=== PATIENT | male | born 1970 | race African-American/Black ===

== ENCOUNTER 2023-04-16 09:39 | Outpatient (AMB) | payer OTHER, SELFPAY ==
--- NOTE | 2023-04-16 09:46 | A.OFFVIS_ITS ---
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: Yes Auto Body Service Mechanic Name: Abhinav RolandJOSEparaprofessional interpreter Allergies cefaclor [From Ceclor] Adverse Reaction (Severe, Verified 04/16/23 09:50) Rash ciprofloxacin [From Cipro] Adverse Reaction (Severe, Verified 04/16/23 09:50) Rash Medication List - Last Reconciled 04/16/23 by Merly Bejarano LPN amlodipine 10 mg PO DAILY atorvastatin 40 mg PO DAILY lisinopril 10 mg PO DAILY naproxen 500 mg PO BID sumatriptan succinate mg PO tamsulosin 0.4 mg PO DAILY tolterodine ER 4 mg PO DAILY triamcinolone acetonide 0.1% 1 appl topical BID-TID triamterene-hydrochlorothiazid 37.5-25 mg 1 tab PO DAILY trospium ER 60 mg PO DAILY HPI Disorder of sacrum/no voicemail 2 HPI0 Details 52-year-old male who presents today to t he office for an evaluation of disorder of sacrum and low back pain. He has had a long history of lower back and neck pain that extensively started after some lifting work and injuries involving his pets. He reports chronic low back pain for 4-5 years. Pain today is mostly rated in the lower back, radiating down the right lower extremity. It is rated at 6/10 in the lower back and up to 10/10 in the right leg. He continues to work full-time. The pain is variable and gets worse with weather changes and movements. It?s been interfering with his daily activities as well as his sleep. His leg pain bothersome. He reports pain in his right leg when walking. His right leg is much worse than left side. He reports severe hip pain that radiates He has had sciatic-related symptoms with the radiating pain and pins and needles in his right lower extremity that have gotten better with the physical therapy in the past. He has also seen Dr. Lakhani for sacroiliac joint-related pain. The SI joint belt did not help. He also underwent a cortisone injection into the SI joint, which was moderately helpful for a few days. He has used cyclobenzaprine for muscle relaxation over the years, which helps with his sleeping. He has been on and off trying chiropractic therapy. Most of this was done in 2019. The patient had a neck injury in 2008 and has been having on-and-off subsequent issues since 2019. He has been having episodes of numbness in his arms. He has also had a long-standing issue with Raynaud's phenomenon in his hands. He also underwent a workout for possible carpal tunnel syndrome, which was ruled out. There is also a question of thoracic outlet syndrome that might be causing numbness and a cold sensation in his hands. He reports waking 15-20 times at night for voiding and has been following up with urologist. [facility] Medical History (Updated 04/16/23 @ 12:30 by Abhi Barahona MD) Hyperlipidemia Hypertension Raynaud's disease Disorder of endocrine system Hearing loss OAB (overactive bladder) Chronic low back pain Paresthesia of upper limb Review of Systems Const All systems reviewed & are unremarkable except as noted in HPI and below Physical Exam Vital Signs: Last Vital Signs Pulse 83 04/16/23 09:48 Resp 12 04/16/23 09:48 BP 126/83 04/16/23 09:48 Pulse Ox 98 04/16/23 09:48 Oxygen Delivery Method Room Air 04/16/23 09:48 General: Appears afebrile. Alert and oriented. Mood and affect appropriate. Follows and participates in conversation appropriately. Respiratory effort is unlabored. Able to transition from sit to stand unassisted. Ambulates with bilaterally normal heel strike and toe off. Straight leg raise is positive on the right side. Bending backward slightly reproduces pain in the right lower back and hip region. Forward flexion reproduces pain in the lower back region. Results Reviewed Results Reviewed: 10/07/22: MR LUMBAR SPINE WO CONTRAST 05/20/22: MR CERVICAL SPINE WO CONTRAST. MRI images reviewed showing vertebrogenic endplate Modic changes at inferior L5 and superior S1 with significant degeneration of the L5 and S1 disc. There is also significant hypertrophy of the facets at L4-5 and L5-S1, along with marrow changes. There is significance foraminal stenosis at L5-S1 bilaterally; both left and right side. There is also ligamentum flavum hypertrophy at L3-4 and L4-5. There is a disc bulge at L4 that in combination with the ligament hypertrophy, causes moderate spinal stenosis. Assessment & Plan Assessment & Plan (1) Vertebrogenic low back pain: Code(s): M54.51 - Vertebrogenic low back pain (2) Lumbar spondylosis: Code(s): M47.816 - Spondylosis without myelopathy or radiculopathy, lumbar region (3) Spinal stenosis, lumbar region with neurogenic claudication: Code(s): M48.062 - Spinal stenosis, lumbar region with neurogenic claudication (4) Intractable low back pain: Code(s): M54.59 - Other low back pain (5) Sacroiliac joint dysfunction: Code(s): M53.3 - Sacrococcygeal disorders, not elsewhere classified Plan Discussed right L5-S1 transforaminal epidural steroid injections, potentially followed by temporary nerve stimulator and basivertebral nerve ablation procedure at L5-S1 for his back and leg pain. Will schedule him for a right L5-S1 TFESI. Discussed the risks and benefits of the procedure with the patient in detail. All questions were answered. The patient is on board with the plan. Brochures for [employer] [facility] and [employer] provided to the patient today. A prescription of gabapentin 300 mg was provided today in the office for temporary pain control. I recommended a gradual increment in the dose of gabapentin to avoid possible side effects. Justification for interventional therapy: ? Patient with average pain > 6/10 ? Patient has exhausted conservative therapy including physical therapy, NSAIDs, muscle relaxants, sacroiliac compression belt, chiropractor therapy, TNS, hot cold application ? Patient unable to tolerate physical therapy due to pain 60 minutes were spent in reviewing medical records, imaging, counseling and physical exam. Scribed for Dr. Barahona by Librado King, medical services assistant, on 04/16/2023. I, Dr. Barahona, have personally reviewed and agree with the information entered by the scribe. Medications: New 2 gabapentin 300 mg PO TID 90 caps 0RF Coding Level of Care Code New Pt Level 5 (14879) Diagnoses Vertebrogenic low back pain M54.51 Lumbar spondylosis M47.816 Spinal stenosis, lumbar region with neurogenic claudication M48.062 Intractable low back pain M54.59 Sacroiliac joint dysfunction M53.3
[2023-04-16 09:48] VITALS: BP 126/83; PULSE 83; RESP 12; O2SAT 98
== END 2023-04-16 10:49 | disposition home or self-care (01) ==
PROVIDERS: PCP Family Medicine; Visit Provider Internal Medicine
DX: M54.51 Vertebrogenic low back pain (principal); M47.816 Spondylosis without myelopathy or radiculopathy, lumbar region; M48.062 Spinal stenosis, lumbar region with neurogenic claudication; M54.59 Other low back pain; M53.3 Sacrococcygeal disorders, not elsewhere classified
CPT/HCPCS: 99205

== ENCOUNTER → 2023-04-16 09:39 | Outpatient (BNVA) | payer OTHER, SELFPAY | PROVIDERS: PCP Family Medicine; Visit Provider Internal Medicine ==

== ENCOUNTER 2023-08-16 06:16 | Outpatient (REF) | payer OTHER, SELFPAY ==
--- NOTE | ~2023-08-16 | FL_ITS ---
EXAMINATION: XR FLUOROSCOPY WITH IMAGES CLINICAL INFORMATION: Lumbar spinal stenosis. COMPARISON: None available. TECHNIQUE: Fluoroscopy Supervised By: Dr. Barahona. Fluoroscopy Time: 0.3 min. Cumulative Dose: 7.17 mGy. DAP: 0.0480 Gycm2. Images: 2. FINDINGS: Intraoperative fluoroscopy and spot films were performed during a procedure in the OR. A needle is seen overlying the lumbar spine on the right. Contrast media is injected demonstrating epidural contrast. Exact level cannot be ascertained secondary to marked coning of the images. Please see Dr. Barahona' report for complete details. FL/FL guidance in treatment room IMPRESSION: Intraoperative fluoroscopy and spot films were obtained. Please see Dr. Barahona' report for complete details.
== END 2023-08-16 06:17 | disposition home or self-care (01) ==
LOC: CF 06:16
PROVIDERS: Visit Provider Internal Medicine
DX: M48.062 Spinal stenosis, lumbar region with neurogenic claudication (principal); M54.16 Radiculopathy, lumbar region
CPT/HCPCS: 64483; J1100; Q9967

== ENCOUNTER 2023-08-16 13:12 | Outpatient (AMB) | payer OTHER, SELFPAY ==
[2023-08-16 14:55] VITALS: BP 120/78; PULSE 76; RESP 18; O2SAT 97
--- NOTE | 2023-08-16 14:55 | A.OFFVIS_ITS ---
Vital Signs 08/16/23 14:55 08/16/23 14:56 Height 5 ft 8 in BP 120/78 120/74 Blood Pressure Location Lt brachial Lt brachial Position Sitting Sitting Respiration 18 18 Pulse 76 88 Pulse Source Pulse Oximeter Pulse Oximeter Pulse Oximetry (%) 97 96 Oxygen Delivery Method Room Air Room Air Comment Pre-Op Post-Op Intake Visit Reasons: Right L5-S1 TFESI Allergies cefaclor [From Ceclor] Adverse Reaction (Severe, Verified 04/16/23 09:50) Rash ciprofloxacin [From Cipro] Adverse Reaction (Severe, Verified 04/16/23 09:50) Rash HPI HPI Right L5-S1 TFESI: Details: Patient presents for scheduled procedure. Denies any recent cough, cold, infection, fever or other significant changes in medical history since last office visit. [facility] Medical History (Updated 08/16/23 @ 14:58 by Abhi Barahona MD) Hyperlipidemia Hypertension Raynaud's disease Disorder of endocrine system Hearing loss OAB (overactive bladder) Chronic low back pain Paresthesia of upper limb Physical Exam Vital Signs: Last Vital Signs Pulse 88 08/16/23 14:56 Resp 18 08/16/23 14:56 BP 120/74 08/16/23 14:56 Pulse Ox 96 08/16/23 14:56 Oxygen Delivery Method Room Air 08/16/23 14:56 Office Procedures Details: Transforaminal epidural steroid injection, Right L5/S1 After obtaining written consent, pre-procedure blood pressure and heart rate were stable and recorded in the nursing record. The patient was placed in the prone position on the fluoroscopy table. The l umbosacral area was prepped with chloraprep, allowed to dry and draped in sterile fashion. Using fluoroscopy, the skin overlying our target was anesthetized with 0.5% lidocaine. A 22 gauge 3.5 inch spinal needle was advanced to the safe triangle in the upper pole of the right L5 foramen. No paresthesias were elicited with needle placement and aspiration was negative for blood and CSF. Correct needle position was confirmed with approximately 1 ml contrast dye (Omnipaque 180 mg/ml) injected under real-time fluoroscopy. No evidence of vascular or intrathecal uptake was seen and there was both epidural and peripheral spread of the contrast agent. 10 mg dexamethasone plus 1 ml containing 0.5% lidocaine was slowly injected. The needle was flushed and removed. The skin was cleansed and a sterile bandages were applied. The patient tolerated the procedure well and no complications were encountered. Following the procedure the patient's vital signs were stable. The patient was discharged home in good condition with post-procedural instructions. Time Out: Immediately prior to the procedure, the following was verbally confirmed that there is a signed consent form and that the correct patient, planned procedure, site and side are consistent with documentation and that necessary equipment and/or blood products are available prior to the start of the case. Complications: none EBL: <5 cc 71369 - Lumbar/Sacral Procedure code (CPT) selection complete Assessment & Plan Assessment & Plan (1) Lumbar radiculitis: Code(s): M54.16 - Radiculopathy, lumbar region Category: Medical Plan Patient is status post right L5/S1 TFESI. Patient tolerated procedure well and was discharged home in stable condition with discharge instructions. All questions were answered. We will follow-up via telephone or in clinic to assess response to therapy. A follow-up appointment was made during today's visit. Orders: Orders FL guidance in treatment room Today M48.062 - Spinal stenosis, lumbar region with neurogenic claudication Coding Level of Care Code Procedure Only Diagnoses Lumbar radiculitis M54.16 CPT Codes Transforaminal Epidural Steroid Inj - TESI 3: 00677 - Lumbar/Sacral ([id number])
[2023-08-16 14:56] VITALS: BP 120/74; PULSE 88; RESP 18; O2SAT 96
== END 2023-08-16 14:45 | disposition home or self-care (01) ==
LOC: HO.PMCPRC 13:12
PROVIDERS: PCP Family Medicine; Visit Provider Internal Medicine
DX: M54.16 Radiculopathy, lumbar region (principal)
CPT/HCPCS: 64483

== ENCOUNTER 2023-09-14 10:19 | Outpatient (AMB) | payer OTHER, SELFPAY ==
--- NOTE | 2023-09-14 10:30 | MHC.OFFVIS ---
Vital Signs 09/14/23 10:32 Height 5 ft 8 in Weight 212 lb BMI 32.2 BP 131/80 Blood Pressure Location Lt brachial Position Sitting Respiration 14 Pulse 86 Pulse Source Pulse Oximeter Pulse Oximetry (%) 98 Oxygen Delivery Method Room Air Intake Visit Reasons: s/p R L5-S1 TFESI Marketing Intelligence Manager Required: Yes Marketing Intelligence Manager Name: [id number] Lamar Allergies cefaclor [From Ceclor] Adverse Reaction (Severe, Verified 09/14/23 10:31) Rash ciprofloxacin [From Cipro] Adverse Reaction (Severe, Verified 09/14/23 10:31) Rash Medication List - Last Reconciled 09/14/23 by Merly Bejarano LPN amlodipine 10 mg PO DAILY atorvastatin 40 mg PO DAILY gabapentin 300 mg PO TID lisinopril 10 mg PO DAILY naproxen 500 mg PO BID sumatriptan succinate mg PO tamsulosin 0.4 mg PO DAILY tolterodine ER 4 mg PO DAILY triamcinolone acetonide 0.1% 1 appl topical BID-TID triamterene-hydrochlorothiazid 37.5-25 mg 1 tab PO DAILY trospium ER 60 mg PO DAILY HPI HPI s/p R L5-S1 TFESI: Details: 52-year-old male who presents today to the office for a status post right L5-S1 TFESI. The patient reports no relief following the procedure. He reports that his last injection worsened his pain. He reports back, hip, and radiating leg pain. He reports constant pain with a burning sensation, which is bothersome. He has started gabapentin with no relief. He has tried increasing the dose of gabapentin without any relief. He has been taking Tylenol 1000 mg t.i.d. He had his last MRI of the back at [facility]. Past procedures 08/16/23: Transforaminal epidural steroid injection, Right L5/S1: no relief. [facility] Medical History (Updated 08/16/23 @ 14:58 by Abhi Barahona MD) Hyperlipidemia Hypertension Raynaud's disease Disorder of endocrine system Hearing loss OAB (overactive bladder) Chronic low back pain Paresthesia of upper limb Review of Systems Const All systems reviewed & are unremarkable except as noted in HPI and below Physical Exam Vital Signs: Last Vital Signs Pulse 86 09/14/23 10:32 Resp 14 09/14/23 10:32 BP 131/80 07/05/24 10:32 Pulse Ox 98 09/14/23 10:32 Oxygen Delivery Method Room Air 09/14/23 10:32 BMI result Body Mass Index 32.2 General: Appears afebrile. Alert and oriented. Mood and affect appropriate. Follows and participates in conversation appropriately. Respiratory effort is unlabored. Able to transition from sit to stand unassisted. Ambulates with bilaterally normal heel strike and toe off. Significant discomfort in the sitting position, especially on the right leg. Standing up is more comfortable. Subjective weakness in the right leg. Results Reviewed Results Reviewed: No imaging is available for review. Assessment & Plan Assessment & Plan (1) Lumbar radiculitis: Code(s): M54.16 - Radiculopathy, lumbar region Category: Medical (2) Vertebrogenic low back pain: Code(s): M54.51 - Vertebrogenic low back pain Category: Medical (3) Lumbar spondylosis: Code(s): M47.816 - Spondylosis without myelopathy or radiculopathy, lumbar region Category: Medical Plan I had an extensive discussion with him regarding his potential pain generators once again, including foraminal stenosis at L5-S1 on the right side, facet arthritis and edema at L4-5, and vertebral endplate degeneration most pronounced at L5-S1. For his radicular pain down the right leg, the primary cause appears to be right L5 nerve root impingement, and unfortunately, he did not get a response from his last transforaminal epidural steroid injection. I proposed an L5-S1 interlaminar KURT to see if we could control his symptoms, which continue to be debilitating. If epidural steroid injection is once again not helpful in relieving them, then we will consider a surgical evaluation for a potential right L5 foraminotomy. With respect to his facet and vertebral endplate issues a source of axial low back pain, we will consider PNS and BVN ablation in the future, respectively, if these pains become primary concerns. Patient is in agreement with the plan. Scribed for Dr. Barahona by Librado King, medical collector, on 09/14/2023. I, Dr. Barahona, have personally reviewed and agree with the information entered by the scribe. Medications: New tramadol 50 mg PO BID PRN 60 tabs 0RF pain Coding Level of Care Code Est Pt Level 4 (08446) Diagnoses Lumbar radiculitis M54.16 Vertebrogenic low back pain M54.51 Lumbar spondylosis M47.816
[2023-09-14 10:32] VITALS: BP 131/80; PULSE 86; RESP 14; O2SAT 98; BMI 32.2
== END 2023-09-14 11:23 | disposition home or self-care (01) ==
PROVIDERS: PCP Family Medicine; Visit Provider Internal Medicine
DX: M54.16 Radiculopathy, lumbar region (principal); M54.51 Vertebrogenic low back pain; M47.816 Spondylosis without myelopathy or radiculopathy, lumbar region
CPT/HCPCS: 99214

== ENCOUNTER → 2023-09-14 10:19 | Outpatient (BNVA) | payer OTHER, SELFPAY | PROVIDERS: PCP Family Medicine; Visit Provider Internal Medicine ==

== ENCOUNTER 2024-02-18 10:39 | Outpatient (AMB) | payer OTHER, SELFPAY ==
--- NOTE | 2024-02-18 10:39 | A.OFFVIS_ITS ---
Intake Visit Reasons: Follow Up Allergies cefaclor [From Ceclor] Adverse Reaction (Severe, Verified 09/14/23 10:31) Rash ciprofloxacin [From Cipro] Adverse Reaction (Severe, Verified 09/14/23 10:31) Rash [facility] Medical History (Updated 08/16/23 @ 14:58 by Abhi Barahona MD) Hyperlipidemia Hypertension Raynaud's disease Disorder of endocrine system Hearing loss OAB (overactive bladder) Chronic low back pain Paresthesia of upper limb Telehealth Telehealth Telehealth Platform: [employer] Location of provider rendering services: practice address Location of patient: address on file Patient Identification confirmed using: Name, : Yes Telehealth method: video Patient verbally consented to treatment: Yes Patient verbally consented to billing insurance company: Yes Patient informed of any privacy concerns related to visit: Yes Coding
--- NOTE | 2024-02-18 10:40 | MHC.OFFVIS ---
Intake Visit Reasons: Follow Up Allergies cefaclor [From Ceclor] Adverse Reaction (Severe, Verified 09/14/23 10:31) Rash ciprofloxacin [From Cipro] Adverse Reaction (Severe, Verified 09/14/23 10:31) Rash HPI HPI Follow Up: Details: 53-year-old male who presents today via tele-visit for follow up. A certified special delivery carrier was present during the visit. He had no significantly following the last injection. He continues to have significant lower back and leg pain, mostly in the thighs. The pain interferes with his daily activities. His sleep is interrupted and he often requires help with standing and walking. He has also significant sexual limitations and is unable to cook for himself. Pain is rated 6-8/10 in intensity on average. He has been having more days with 8+/10 pain in the recent weeks. He is interested in alternative options. He has been doing physical therapy and home exercises including stretching and strengthening. Past procedures 08/16/23: Transforaminal epidural steroid injection, Right L5/S1: no relief. [facility] Medical History (Updated 08/16/23 @ 14:58 by Abhi Barahona MD) Hyperlipidemia Hypertension Raynaud's disease Disorder of endocrine system Hearing loss OAB (overactive bladder) Chronic low back pain Paresthesia of upper limb Review of Systems Const All systems reviewed & are unremarkable except as noted in HPI and below Telehealth Telehealth Telehealth [facility] Location of provider rendering services: practice address Location of patient: address on file Patient Identification confirmed using: Name, : Yes Telehealth method: video Patient verbally consented to treatment: Yes Patient verbally consented to billing insurance company: Yes Patient informed of any privacy concerns related to visit: Yes Minutes spent on Phone/Video with Pt.: 14 Results Reviewed Results Reviewed: No imaging is available for review. Assessment & Plan Assessment & Plan (1) Lumbar radiculitis: Code(s): M54.16 - Radiculopathy, lumbar region Category: Medical Plan He continues to be having radicular symptoms that are more than 6/10 intensity on average and interfering with her activities of daily living. He has not been able to keep up with exercising or home stretching and strengthening routine because of limitations due to pain and as a result has gained 20 lbs. Since the last injection, once again I informed him that we will try an interlaminar epidural injection as the next step but if that is not helpful, then we have to consider more interventional options in the future for helping these symptoms. The patient expressed an understanding and is onboard with the plan. We will schedule him for a right L5-S1 interlaminar KURT. Discussed the risks and benefits of the procedure with the patient in detail. All questions were answered. The patient is on board with the plan. Justification for interventional therapy: ? Patient with average pain > 6/10 ? Patient has exhausted conservative therapy. ? Patient continuing HEP, unable to tolerate physical therapy due to pain. . Patient has a good understanding of their pain condition and has appropriate mental and social support. Scribed for Dr. Barahona by Librado King, medical program specialist, on 02/18/2024. I, Dr. Barahona, have personally reviewed and agree with the information entered by the scribe. Coding Level of Care Code Tele Est Pt Level 3 (29074) Diagnoses Lumbar radiculitis M54.16
== END 2024-02-18 10:40 | disposition home or self-care (01) ==
LOC: HO.PMC 10:39
PROVIDERS: PCP Family Medicine; Visit Provider Internal Medicine
DX: M54.16 Radiculopathy, lumbar region (principal)
CPT/HCPCS: 99213

== ENCOUNTER 2024-03-13 07:26 | Outpatient (REF) | payer OTHER, SELFPAY ==
--- NOTE | ~2024-03-13 | FL_ITS ---
EXAMINATION: FLUOROSCOPY GUIDANCE FOR NEEDLE PLACEMENT CLINICAL INFORMATION: M54.16 - Radiculopathy, lumbar region COMPARISON: None available. TECHNIQUE: 2 digital images obtained in OR. No radiologist was present during the procedure FINDINGS/ FL/FL guidance in treatment room IMPRESSION: There are 2 images obtained in OR revealing needle positioned in posterior epidural space with contrast opacifying the epidural space at L5-S1 disc level with contrast opacification FLUOROSCOPY TIME: 0.3 minutes DOSE AREA PRODUCT: 0.0567 uGy-m2 (microgray-meter squared) Electronically signed by: Martinez Berry MD 03/24/2024 08:35 AM [facility]
== END 2024-03-13 07:27 | disposition home or self-care (01) ==
LOC: CF 07:26
PROVIDERS: Visit Provider Internal Medicine
DX: M54.16 Radiculopathy, lumbar region (principal)
CPT/HCPCS: 62323; J2003; J3301; Q9967

== ENCOUNTER 2024-03-13 09:05 | Outpatient (AMB) | payer OTHER, SELFPAY ==
[2024-03-13 09:12] VITALS: BP 145/87; PULSE 108; O2SAT 97
--- NOTE | 2024-03-13 09:12 | MHC.OFFVIS ---
Vital Signs 03/13/24 09:12 03/13/24 10:10 BP 145/87 H 146/93 H Blood Pressure Location Lt brachial Lt brachial Position Sitting Sitting Pulse 108 H 104 H Pulse Source Pulse Oximeter Pulse Oximeter Pulse Oximetry (%) 97 98 Oxygen Delivery Method Room Air Room Air Intake Visit Reasons: Right L5-S1 interlaminar KURT Allergies cefaclor [From Ceclor] Adverse Reaction (Severe, Verified 09/14/23 10:31) Rash ciprofloxacin [From Cipro] Adverse Reaction (Severe, Verified 09/14/23 10:31) Rash HPI HPI Right L5-S1 interlaminar KURT: Details: Patient presents for scheduled procedure. Denies any recent cough, cold, infection, fever or other significant changes in medical history since last office visit. [facility] Medical History (Updated 08/16/23 @ 14:58 by Abhi Barahona MD) Hyperlipidemia Hypertension Raynaud's disease Disorder of endocrine system Hearing loss OAB (overactive bladder) Chronic low back pain Paresthesia of upper limb Physical Exam Vital Signs: Last Vital Signs Pulse 108 H 03/13/24 09:12 BP 145/87 H 03/13/24 09:12 Pulse Ox 97 03/13/24 09:12 Oxygen Delivery Method Room Air 03/13/24 09:12 Office Procedures AMB Joint Injection/Aspiration Joint Injection/Aspiration Details: Interlaminar epidural steroid injection, L5/S1, Right parasaggital After obtaining written consent, pre-procedure blood pressure and heart rate were stable and recorded in the nursing record. The patient was placed in the prone position. The lumbosacral area was widely prepped with chloraprep and draped in sterile fashion. Fluoroscopic guidance was used to identify the desired interlaminar space and for needle placement. Subcutaneous 0.5% lidocaine was used to anesthetize the skin overlying the target. A 20-gauge Shafer needle was advanced to the epidural space using loss of resistance to contrast technique under fluoroscopic AP and contralateral oblique views. There was no evidence of heme or CSF and no paresthesias were elicited with needle placement. Confirmation of epidural needle placement was performed with 1cc of omnipaque 180. Next 3 ml 0.5% lidocaine mixed with 80 mg triamcinilone was administered epidurally with no pain elicited on injection. The needle tract tubing was then cleared with 1 ml of 0.5% lidocaine. The needle was removed, skin cleansed and a sterile bandage was applied. The patient tolerated the procedure well and no complications were encountered. Following the procedure the patient's vital signs were stable. The patient was discharged home in good condition with post-procedural instructions. Time Out: Immediately prior to the procedure, the following was verbally confirmed that there is a signed consent form and that the correct patient, planned procedure, site and side are consistent with documentation and that necessary equipment and/or blood products are available prior to the start of the case. Complications: none EBL: <2 cc Coding 17872 - Caudal/Lumbar Epidural/Interlaminar with fluoroscopy Procedure code (CPT) selection complete Assessment & Plan Assessment & Plan (1) Lumbar radiculitis: Code(s): M54.16 - Radiculopathy, lumbar region Category: Medical Plan Patient is status post right L5-S1 interlaminar KURT. Patient tolerated procedure well and was discharged home in stable condition with discharge instructions. All questions were answered. We will follow-up via telephone or in clinic to assess response to therapy. A follow-up appointment was made during today's visit. Orders: Orders FL guidance in treatment room Today M54.16 - Radiculopathy, lumbar region Coding Level of Care Code Procedure Only Diagnoses Lumbar radiculitis M54.16 CPT Codes Coding - Joint 11: 70913 - Caudal/Lumbar Epidural/Interlaminar with fluoroscopy ([id number])
[2024-03-13 10:10] VITALS: BP 146/93; PULSE 104; O2SAT 98
== END 2024-03-13 10:11 | disposition home or self-care (01) ==
LOC: HO.PMCPRC 09:05
PROVIDERS: PCP Family Medicine; Visit Provider Internal Medicine
DX: M54.16 Radiculopathy, lumbar region (principal)
CPT/HCPCS: 62323

== ENCOUNTER 2024-08-01 12:39 | Outpatient (AMB) | payer OTHER, SELFPAY ==
--- OUTSIDE RECORDS SUMMARY | 2024-08-01 12:41 | XMS_ITS | Clinical Summary ---
Author Organization [facility] Address [address] [place] [address] Care Team Providers Care Warehouse Man Name Role Phone Maximiliano Ocampo MD Primary Care Provider Allergies Active Allergy Reactions Criticality Noted Date Comments Cefaclor 09/20/2009 [facility] Comment: Category: Adverse Reaction; Ciprofloxacin 09/20/2009 [facility] Comment: Category: Adverse Reaction; Medications Testosterone Cypionate (DEPO-TESTOTERO NE) 200 MG/ML injection inject 100mg/ml [id number] 1 5 09/20/2009 Active Simvastatin (ZOCOR) 40 MG tablet TAKE 1 TABLET DAILY IN THE EVENING. 90 3 11/04/2012 Active Aspirin (TGT Aspirin Low Dose) 81 MG tablet TAKE 1 TABLET DAILY. 100 0 12/06/2012 Active METRONIDAZOLE, TOPICAL, (METROCREAM) 0.75 % cream APPLY AND GENTLY MASSAGE INTO AFFECTED AREA(S) TWICE DAILY. 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 Tinea cruris 11/04/2012 Tendonitis 04/18/2012 Overview (04/15/2023): Onset: 04/18/2012; Description: R elbow extensor Carpal tunnel syndrome Bilateral 04/18/2012 Overview (04/15/2023): Laterality: Bilateral Papules 04/18/2012 Arm pain Right 10/25/2010 Overview (04/15/2023): Laterality: Right Hyperlipidemia 09/27/2010 Sensorineural hearing loss 09/28/2009 Migraine headache 09/20/2009 Endocrine disorder 09/20/2009 Immunizations Name Administration Dates Next Due Influenza (SEASONAL) - 12/06/2012,02/10/2012 MMR 02/23/2003,01/27/2003 Tdap 11/04/2012 Family History Medical History Relation Name Comments Other Father Organic Adult O bstructive Sleep Apnea : Father Cancer - Breast Mother Breast Cance r : Mother Diabetes Mother Diabetes Mellit us : Mother Other Mother Organic Adult O bstructive Sleep Apnea : Mother Allergies (med/food/envrnmt) Other Reported Allergies : Family History Cancer (?Type) Paternal grandmother Cance r : Paternal Grandmother;unknown type Other Sister Anorexia Nervos a : Sister Psych/Mental Health Sister Bipolar I Disorder, Most Recent Episode, Manic With Seasonal Pattern : Sister Relation Name Status Comments Father Mother Other Paternal grandmother Sister Social History Tobacco Use Types Packs/Day Years Used Date Smoking Tobacco: Never Assessed Comments:Smoking Status:Kole nunes a smoker Sex and Gender Information Value Date Recorded Sex Assigned at Not on file Legal Sex Male 7:04 PM EDT Gender Identity Not on file Sexual Orientation Not on file Last Filed Vital Signs Vital Sign Reading Time Taken Comments Blood Pressure 130/88 05/16/2013 2:10 PM EST Pulse 64 10/25/2010 2:18 PM EDT Temperature 37.1 ??C (98.7 ??F) 09/16/2012 2:17 PM ED T Respiratory Rate 12 10/25/2010 2:18 PM EDT Oxygen Saturation 90% 10/25/2010 2:18 PM EDT Inhaled Oxygen Concentration - - Weight 91.3 kg (201 lb 4.2 oz) 05/16/2013 2:06 P M EST Height 175.3 cm (5' 9 ) 11/04/2012 11:05 AM EDT Body Mass Index 29.72 11/04/2012 11:05 AM EDT Plan of Treatment Health Maintenance Due Date Last Done Comments Hepatitis C Screening 1970 Hep B (1 of 3 - 19+ 3-dose series) 1988 Pneumococcal 50+ years (1 of 1 - PCV) 10/03/2019 Zoster (Shingrix) (1 of 2) 10/03/2019 DTaP/Tdap/Td (2 - Td or Tdap) 11/04/2022 11/04/2012 COVID-19 Vaccine (1 - 2023-2 5 season) 2023 Influenza (#1) 2023 12/06/2012, 02/10/2012 HPV Vaccine Aged Out No longer eligi ble based on patient's age to complete this topic Hep A Aged Out No longer eligi ble based on patient's age to complete this topic Hib Aged Out No longer eligi ble based on patient's age to complete this topic Meningococcal ACWY Aged Out No longer eligible based on patient's age to complete this topic Care Teams Warehouse Man Relationship Specialty Start Date End Date Maximiliano Ocampo MD [facility] [address] [place] [id number] PCP - General 10/16/22
--- NOTE | 2024-08-01 13:08 | HO.SPINEOV ---
Intake Visit Reasons: low back pain - ASL Intake Note: Mr. De Souza is here today c/o low back pain. Cartridge Assembler Required: Yes Cartridge Assembler Name: Tablet ASL Allergies cefaclor [From Ceclor] Adverse Reaction (Severe, Verified 08/01/24 13:10) Hives ciprofloxacin [From Cipro] Adverse Reaction (Severe, Verified 08/01/24 13:10) Hives Assessment & Plan Assessment & Plan (1) Spinal stenosis, lumbar region with neurogenic claudication: Code(s): M48.062 - Spinal stenosis, lumbar region with neurogenic claudication Category: Medical Plan Dear Dr grant, Thank you for referring Mr De Souza to our office today. This is a very nice 53-year-old hearing impaired gentleman who presents to the office today for evaluation of a low back pain and right L5 radiculopathy which has been slowly getting worse over the last 4-5 years. He claims that it started out as just a mild symptom but then progressed to the point to where he is having a lot of difficulty just standing and walking. He will get severe cramping down the right leg into the outer calf which can be incapacitating at times. It is aggravated with standing walking and does get better if he sits down or lies down. If he sits for too long however it can start to act up. He underwent numerous rounds of physical therapy. He tried 2 injections at your office. The 1st 1 was a transforaminal epidural and that only made things worse. The 2nd was an epidural as I understand it and that did not help either. It was not as painful as the 1st 1 but it really did not do much. He had an MRI done at [facility] showing severe stenosis at L4-5 was referred to us for an evaluation. He takes naproxen, cyclobenzaprine, Tylenol and gabapentin. These things do help a bit but does not completely take away the pain. He has been in bed with an issue with vertigo and an effusion in his mastoid bone on the left side for the last month so that has been making things a bit more tolerable but mainly because he has not got out of bed very much. PMH: Generally fairly healthy, no major medical problems, no issues with coronary disease, pulmonary or renal issues. He has had history of hypertension, high cholesterol, hand surgery in 2013. The patient did undergo gender reassignment surgery with complete hysterectomy, oophorectomy and cervix removal. There was also some kind of genital or urtheral surgery involved as well. The patient has had issues in the past when he needs catheter and it can be quite painful and difficult. As above, the patient has had recent issue with an ear infection on the left side which has left him with vertigo quite severe and left-sided mastoid ear pain. Patient recently saw an ENT doctor and was told they did not have an infection at this time and there was very little concerned for the symptoms. He is due to start therapy for his crystals in his ears soon. Social hx: Does not smoke, drink use any recreational drugs Medications: Trospium chloride, triamterene hydrochlorothiazide, amlodipine, lisinopril, Lipitor, Colace, meclizine, eyedrops, phencyclidine, cyclosporine ophthalmic solution, testosterone, ketoconazole, triamcinolone, Valium, sumatriptan, cyclobenzaprine, Zofran, naproxen, gabapentin, tramadol, Tylenol, oxycodone, Flomax, Co Q10, famotidine Allergies: Cipro and Ceclor Physical exam: Patient is awake alert oriented no acute distress, walks with a walker but mainly because of dizziness, strength and reflexes in the lower extremities are normal. There is a large horizontal lower midline abdominal scar which is well healed Imaging review: Lumbar MRI done at [facility] shows combination of degenerative disc disease, facet overgrowth and some epidural lipomatosis causing severe stenosis at L4-5. There is a degenerative disc at L5-S1 with Modic endplate changes. No significant foraminal or central canal stenosis at this level. Impression: 53-year-old male presents to the office today for evaluation of low back pain and right-sided leg pain going down into the calf in an L5 distribution. I had a lengthy conversation with the patient and his significant other with the help of a tile designer [id number] about his MRI and the pain. We have to have 2 separate distinctions between the back pain and the right leg pain. I explained that the right leg pain seems to be connected to the stenosis as it fits the typical description of neurogenic claudicating stenosis. However, stenosis typically does not cause back pain. If we are going to focus on the back pain and the leg pain, where talking about a much more involved issue and possibly spinal fusion. If we are going to just treat the leg pain, Dr. Venegas thinks that just a simple right L4-5 decompression would be adequate. We typically quote 90% success rate on this. The patient has been in pain for so long he would like to proceed with surgery. I have tentatively given him a date for September 04. I did however tell his significant other that if the dizziness has not gone away and he is not able to get out of bed, I do not want to put him under anesthesia and do surgery if he is going to be bed-bound or if there is a chance we could make his vertigo worse with the anesthesia. If that is the case we could just push this surgical date out a little bit. Pt was given risk and benefits of surgery including but not limited to infection, hematoma , nerve injury,durotomy, weakness,bowel/bladder injury, persistent pain, as well as the option to continue with conservative treatment and patient wishes to proceed with surgery. Pt is aware they should stop their motrin, aspirin 7 days prior to surgery. All questions were answered to the best of our ability. If there is anything about this patients medical history that we have overlooked or concerns you have about us proceeding with surgery we would appreciate any input you can offer. Thank you for allowing us to care for your patient. The total time spent with this visit with this patient was 45 minutes reviewing history, physical exam, lumbar imaging review, and implementation of treatment plan or further diagnostic testing Lux Venegas MD,PhD [facility] Coding Level of Care Code New Pt Level 4 (70498) Diagnoses Spinal stenosis, lumbar region with neurogenic claudication M48.062
== END 2024-08-01 14:08 | disposition home or self-care (01) ==
LOC: HO.HNS 12:40
PROVIDERS: PCP Nurse Practitioner Adult Health; Referring Provider Internal Medicine; Visit Provider Physician Assistant
DX: M48.062 Spinal stenosis, lumbar region with neurogenic claudication (principal)
CPT/HCPCS: 99204

== ENCOUNTER 2024-09-04 05:51 | Day surgery (SDC) | payer OTHER, SELFPAY ==
--- OUTSIDE RECORDS SUMMARY | 2024-08-12 16:47 | XMS_ITS | Clinical Summary ---
Author Organization [facility] Address [address] [place] [address] Care Team Providers Care Dramatic Agent Name Role Phone Maximiliano Ocampo MD Primary Care Provider [phone] Allergies Active Allergy Reactions Criticality Noted Date Comments Cefaclor 09/20/2009 [facility] Comment: Category: Adverse Reaction; Ciprofloxacin 09/20/2009 [facility] Comment: Category: Adverse Reaction; Medications Testosterone Cypionate (DEPO-TESTOTERO NE) 200 MG/ML injection inject 100mg/ml [id number] 1 5 09/20/2009 Active Simvastatin (ZOCOR) 40 [...] Migraine headache 09/20/2009 Endocrine disorder 09/20/2009 Immunizations Immunization Administration Dates Next Due Influenza (SEASONAL) - [...] Td or Tdap) 11/04/2022 11/04/2012 COVID-19 Vaccine (2023-2 5 season) 2023 Influenza (Season Ended) 2024 013, 02/10/2012 HPV Vaccine Aged Out No longer [...] age to complete this topic Care Teams Dramatic Agent Relationship Specialty Start Date End Date Maximiliano Ocampo MD [facility] [address] [place] [id number] PCP - General 10/16/22
[2024-08-22 09:56] VITALS: BP 139/82; PULSE 94; RESP 16; O2SAT 98; BMI 33.6
--- NOTE | ~2024-09-04 | FL_ITS ---
EXAMINATION: XR FLUOROSCOPY WITH IMAGES CLINICAL INFORMATION: Right L4-5 decompression. COMPARISON: None available. TECHNIQUE: Fluoroscopy provided to: Dr. Venegas Fluoroscopy time: 0.0 minutes DAP: 1.47 Gycm2 Images: 1 FINDINGS: Solitary spot image lateral lumbar spine taken during L4-5 compression. Please refer to the full operative report for further detail. FL/FL guidance in OR IMPRESSION: Fluoroscopic guidance. Electronically signed by: Vito Lima MD 09/04/2024 10:32 AM EDT
[2024-09-04 06:21] VITALS: BMI 33.7
[2024-09-04 06:37] VITALS: BP 127/85; PULSE 88; RESP 12; TEMP 36.6; O2SAT 96; BMI 33.7
[2024-09-04] MEDS: Gabapentin 300 MG CAPSULE PO (06:50)
[2024-09-04] MEDS: methocarbamoL 750 MG TABLET PO (06:50)
[2024-09-04] MEDS: Lactated Ringers 1,000 ML 100 ML IVCONT (06:50)
--- NOTE | 2024-09-04 06:56 | MHC.SHP ---
Pre-Procedural Eval Section A - 24 Hr Update-Section A only Date of Service: 09/04/24 Section B - Complete if H&P > 30 days Chief Complaint: Spinal stenosis, lumbar region with neurogenic cla Allergies: Allergies Allergy/AdvReac Type Severity Reaction Status Date / Time cefaclor (From Ceclor) Allergy Severe Hives,swell Verified 09/04/24 06:33 ing ciprofloxacin (From Cipro) Allergy Severe Hives, Verified 09/04/24 06:33 swelling shellfish derived (shellfish) Allergy Hives Verified 09/04/24 06:33 Review of Systems Sugical H&P ROS: Negative: Constitution, Cardiovascular, Respiratory, Neurological, Psychiatric, Hem-Onc, Allergic/Immunologic, Gastrointestinal, Genitourinary, Musculoskeletal, Integumentary, Endocrine and Eyes/Ears/Nose/Throat Exam Surgical H&P Exam: Not Evaluated: HEENT, Not Evaluated: Heart, Not Evaluated: Lungs, Not Evaluated: Extremities, Not Evaluated: Abdomen, Not Evaluated: Skin and Not Evaluated: Neurological Exam Comment: The patient is awake, alert, no acute distress. Proposed surgical incision site is clean, dry, with no signs of recent injury. Plan Diagnosis/Plan: Unchanged I have reviewed the history and physical and performed a pertinent physical examination on my patient. No changes have occurred unless specified. Plan remains the same, right-sided L4-5 lumbar decompression. Time Spent With Patient Time: Total time managing care of this patient today __7__ minutes.
[2024-09-04] MEDS: vancomycin HCL 1,500 MG in 0.9 % Sodium Chloride 500 ML 333.33 MG IV (07:03)
--- NOTE | 2024-09-04 08:00 | HO.ANESPROP2 ---
Documented by User: Chrissy Dexter NP 09/02/24 14:31 HPI - Anesthesia Eval Consult details Narrative: 53yo M for Right L4-5 Decompression, 09/04/2024 No recent illness No CP/SOB with limited actvity. Uses walker for ambulation since June d/t dizziness r/t ear infection. Improving with Physical Therapy. Antibiotics completed. Meclizine for dizziness PCP visit 08/22/24 to follow up with ear infection symptoms - infection resolved and vertigo greatly improved. Optimized to proceed with surgery Reports slow to wake with GA Thoracic outlet syndrome - pain bilat upper extremities and neck. Follows [facility] vascular, last office visit 04/2024. Provider wants to r/o other causes before surgical decompression. Patient is seeking second opinion in [place] Discussed risk of exacerbation of dizziness and thoracic outlet symptoms d/t anesthesia and positioning. Pt verbalized understanding and accepting of risk. Instructed to continue walker use post op for safety. Remote hx hyst/mastectomy (FtoM transgendered). Friable urethra. If cath required, urology to be consulted. 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 [facility] Active Problems Active Problems: All Active Problems Lumbar radiculitis (Acute) Sacroiliac joint dysfunction (Acute) Intractable low back pain (Acute) Spinal stenosis, lumbar region with neurogenic claudication (Acute) Lumbar spondylosis (Acute) Vertebrogenic low back pain (Acute) Past Medical History Medical History (Updated 08/22/24 @ 11:35 by Milady Castro RN) Vertigo Walker as ambulation aid Foot drop, right foot Urethral trauma History of ear infection (~06/2024) Thoracic outlet syndrome Slow to wake up after anesthesia Constipation History of migraine headaches Hyperlipidemia Hypertension Raynaud's disease Disorder of endocrine system Hearing loss OAB (overactive bladder) Chronic low back pain Paresthesia of upper limb Family History Family history of problems with anesthesia: No Surgical History Surgical History (Updated 08/22/24 @ 09:54 by Milady Castro, IZZY) History of surgery (~1991) Hx of bilateral mastectomy (~1987) History of surgery on right wrist (~2013) History of Problems with Anesthesia: No (Slow to wake sometimes) Social History Social History (Updated 08/22/24 @ 11:05 by Milady Castro RN) Household Members: Spouse Housing: House Are you a primary health care assistant to a significant other at home: No Do you presently have visiting nurse or other home services: No Patient Tobacco Use Status: Never used Tobacco e-Cigarette/Vaping Use: Never Used Use of substances other than those prescribed or required for medical reasons: No Have you been hit, kicked, punched, or otherwise hurt by someone within the past year? If so, by whom?: No Are you DNR?: No Advance Directives: No Advance Directives Information Provided: Yes Advance Directives on File: No Poor oral hygiene: No Meds Allergies Allergy/AdvReac Type Severity Reaction Status Date / Time cefaclor (From Ceclor) Allergy Severe Hives,swell Verified 09/04/24 06:33 ing ciprofloxacin (From Cipro) Allergy Severe Hives, Verified 09/04/24 06:33 swelling shellfish derived (shellfish) Allergy Hives Verified 09/04/24 06:33 Home Medications ?Medication ?Instructions ?Recorded ?Confirmed ?Last Taken ?Type amlodipine 10 mg tablet 10 mg PO DAILY 04/16/23 08/21/24 Unknown History atorvastatin 40 mg tablet 40 mg PO DAILY 04/16/23 08/21/24 Unknown History lisinopril 10 mg tablet 10 mg PO DAILY 04/16/23 08/21/24 Unknown History naproxen 500 mg tablet 500 mg PO BID 04/16/23 08/21/24 Unknown History tamsulosin 0.4 mg capsule 0.4 mg PO DAILY 04/16/23 08/21/24 Unknown History triamcinolone acetonide 0.1 % 1 appl topical BID-TID 04/16/23 08/21/24 Unknown History topical cream triamterene 37.5 1 tab PO DAILY 04/16/23 08/21/24 Unknown History mg-hydrochlorothiazide 25 mg tablet trospium 60 mg capsule,extended 60 mg PO DAILY 04/16/23 08/21/24 Unknown History release 24 hr coQ10 (ubiquinol) DAILY 08/21/24 Unknown History cyclobenzaprine 10 mg tablet 10 mg PO TID PRN Muscle Spasm 08/21/24 08/21/24 Unknown History estradiol 0.01% (0.1 mg/gram) 1 g vaginal 2XW 08/21/24 08/21/24 Unknown History vaginal cream gabapentin 800 mg tablet 800 mg PO QID 08/21/24 08/21/24 Unknown History tramadol 50 mg tablet 200 mg PO Q6-8H PRN pain 08/21/24 08/22/24 Unknown History varenicline tartrate 0.03 mg/spray 0.03 mg intranasal BID 08/21/24 08/22/24 Unknown History metered nasal spray (Tyrvaya) Sleep Well Gummy 08/22/24 Unknown History acetaminophen 500 mg tablet 1,000 mg PO Q6H PRN Pain 08/22/24 08/22/24 Unknown History qbkrx-r-byntivtyaansw 400 unit 400 unit PO DAILY PRN Abdominal 08/22/24 08/22/24 Unknown History tablet (Beano) Discomfort rajmlmdjkd-qdpbtojuoawlj-oxcjweta 2 tab PO Q6H PRN Headache 08/22/24 08/22/24 Unknown History 50 mg-325 mg-40 mg tablet cyclosporine 0.09 % eye drops in a 1 drp ophthalmic (eye) Q12H 08/22/24 08/22/24 Unknown History dropperette (Cequa) diazepam 2 mg tablet 2 mg PO TID PRN Anxiety 08/22/24 08/22/24 Unknown History diphenhydramine 25 2 tab PO BEDTIME PRN Insomnia 08/22/24 08/22/24 Unknown History mg-acetaminophen 500 mg tablet (Tylenol PM Extra Strength) docusate sodium 100 mg capsule 300 mg PO BEDTIME 08/22/24 08/22/24 Unknown History famotidine 20 mg tablet 20 mg PO BID PRN Acid Reflux 08/22/24 08/22/24 Unknown History ketoconazole 2 % topical cream 1 appl topical BID 08/22/24 08/22/24 Unknown History meclizine 25 mg tablet 25 - 50 mg PO BID PRN Dizziness Or 08/22/24 08/22/24 Unknown History Vertigo ondansetron 4 mg disintegrating 4 - 8 mg PO Q8H PRN Nausea 08/22/24 08/22/24 Unknown History tablet oxycodone 5 mg tablet 5 mg PO Q8H PRN Pain 08/22/24 08/22/24 Unknown History testosterone cypionate 200 mg/mL 100 mg IM Q2W 08/22/24 08/22/24 Unknown History intramuscular oil Exam Height,Weight and Vital Signs: Height 5 ft 8.5 in Weight 101.605 kg Last Vital Signs Pulse 94 08/22/24 09:56 Resp 16 08/22/24 09:56 BP 139/82 08/22/24 09:56 Pulse Ox 98 08/22/24 09:56 O2 Del Method Room Air 08/22/24 09:56 Airway Mallampati Class: II TM Dist: >3cm Neck ROM: Limited (pain d/t thoracic outlet syndrome) Loose/Missing/Broken Teeth: No Heart: RRR Lungs: CTAB Assessment and Plan Assessment Anesthesia Assessment: Anesthesia Plan Discussed and PAT Visit Final Anesthetic Review Family History of Problems with Anesthesia: No History of Problems with Anesthesia: No (Slow to wake sometimes) Documented by User: Melvi Fraga DO 09/04/24 08:04 HPI - Anesthesia Eval Consult details Narrative: 53yo M for Right L4-5 Decompression, 09/04/2024 No recent illness No CP/SOB with limited actvity. Uses walker for ambulation since June d/t dizziness r/t ear infection. Improving with Physical Therapy. Antibiotics completed. Meclizine for dizziness PCP visit 08/22/24 to follow up with ear infection symptoms - infection resolved and vertigo greatly improved. Optimized to proceed with surgery Reports slow to wake with GA Thoracic outlet syndrome - pain bilat upper extremities and neck. Follows [facility] vascular, last office visit 04/2024. Provider wants to r/o other causes before surgical decompression. Patient is seeking second opinion in [place] Discussed risk of exacerbation of dizziness and thoracic outlet symptoms d/t anesthesia and positioning. Pt verbalized understanding and accepting of risk. Instructed to continue walker use post op for safety. Remote hx hyst/mastectomy (FtoM transgendered). Friable urethra. If cath required, urology to be consulted. [facility] Past Medical History Medical History (Updated 08/22/24 @ 11:35 by Milady Castro RN) Vertigo Walker as ambulation aid Foot drop, right foot Urethral trauma History of ear infection (~06/2024) Thoracic outlet syndrome Slow to wake up after anesthesia Constipation History of migraine headaches Hyperlipidemia Hypertension Raynaud's disease Disorder of endocrine system Hearing loss OAB (overactive bladder) Chronic low back pain Paresthesia of upper limb Family History Family history of problems with anesthesia: No Surgical History Surgical History (Updated 08/22/24 @ 09:54 by Milady Castro RN) History of surgery (~1991) Hx of bilateral mastectomy (~1987) History of surgery on right wrist (~2013) History of Problems with Anesthesia: No (Slow to wake sometimes) Social History Social History (Updated 08/22/24 @ 11:05 by Milady Castro RN) Household Members: Spouse Housing: House Are you a primary health care assistant to a significant other at home: No Do you presently have visiting nurse or other home services: No Patient Tobacco Use Status: Never used Tobacco e-Cigarette/Vaping Use: Never Used Use of substances other than those prescribed or required for medical reasons: No Have you been hit, kicked, punched, or otherwise hurt by someone within the past year? If so, by whom?: No Are you DNR?: No Advance Directives: No Advance Directives Information Provided: Yes Advance Directives on File: No Poor oral hygiene: No Meds Allergies Allergy/AdvReac Type Severity Reaction Status Date / Time cefaclor (From Ceclor) Allergy Severe Hives,swell Verified 09/04/24 06:33 ing ciprofloxacin (From Cipro) Allergy Severe Hives, Verified 09/04/24 06:33 swelling shellfish derived (shellfish) Allergy Hives Verified 09/04/24 06:33 Home Medications ?Medication ?Instructions ?Recorded ?Confirmed ?Last Taken ?Type amlodipine 10 mg tablet 10 mg PO DAILY 04/16/23 08/21/24 Unknown History atorvastatin 40 mg tablet 40 mg PO DAILY 04/16/23 08/21/24 Unknown History lisinopril 10 mg tablet 10 mg PO DAILY 04/16/23 08/21/24 Unknown History naproxen 500 mg tablet 500 mg PO BID 04/16/23 08/21/24 Unknown History tamsulosin 0.4 mg capsule 0.4 mg PO DAILY 04/16/23 08/21/24 Unknown History triamcinolone acetonide 0.1 % 1 appl topical BID-TID 04/16/23 08/21/24 Unknown History topical cream triamterene 37.5 1 tab PO DAILY 04/16/23 08/21/24 Unknown History mg-hydrochlorothiazide 25 mg tablet trospium 60 mg capsule,extended 60 mg PO DAILY 04/16/23 08/21/24 Unknown History release 24 hr coQ10 (ubiquinol) DAILY 08/21/24 Unknown History cyclobenzaprine 10 mg tablet 10 mg PO TID PRN Muscle Spasm 08/21/24 08/21/24 Unknown History estradiol 0.01% (0.1 mg/gram) 1 g vaginal 2XW 08/21/24 08/21/24 Unknown History vaginal cream gabapentin 800 mg tablet 800 mg PO QID 08/21/24 08/21/24 Unknown History tramadol 50 mg tablet 200 mg PO Q6-8H PRN pain 08/21/24 08/22/24 Unknown History varenicline tartrate 0.03 mg/spray 0.03 mg intranasal BID 08/21/24 08/22/24 Unknown History metered nasal spray (Tyrvaya) Sleep Well Gummy 08/22/24 Unknown History acetaminophen 500 mg tablet 1,000 mg PO Q6H PRN Pain 08/22/24 08/22/24 Unknown History hjzae-g-chchtwlikkdyv 400 unit 400 unit PO DAILY PRN Abdominal 08/22/24 08/22/24 Unknown History tablet (Beano) Discomfort npzrmncdfc-pypcyztbujyhf-jsspylvc 2 tab PO Q6H PRN Headache 08/22/24 08/22/24 Unknown History 50 mg-325 mg-40 mg tablet cyclosporine 0.09 % eye drops in a 1 drp ophthalmic (eye) Q12H 08/22/24 08/22/24 Unknown History dropperette (Cequa) diazepam 2 mg tablet 2 mg PO TID PRN Anxiety 08/22/24 08/22/24 Unknown History diphenhydramine 25 2 tab PO BEDTIME PRN Insomnia 08/22/24 08/22/24 Unknown History mg-acetaminophen 500 mg tablet (Tylenol PM Extra Strength) docusate sodium 100 mg capsule 300 mg PO BEDTIME 08/22/24 08/22/24 Unknown History famotidine 20 mg tablet 20 mg PO BID PRN Acid Reflux 08/22/24 08/22/24 Unknown History ketoconazole 2 % topical cream 1 appl topical BID 08/22/24 08/22/24 Unknown History meclizine 25 mg tablet 25 - 50 mg PO BID PRN Dizziness Or 08/22/24 08/22/24 Unknown History Vertigo ondansetron 4 mg disintegrating 4 - 8 mg PO Q8H PRN Nausea 08/22/24 08/22/24 Unknown History tablet oxycodone 5 mg tablet 5 mg PO Q8H PRN Pain 08/22/24 08/22/24 Unknown History testosterone cypionate 200 mg/mL 100 mg IM Q2W 08/22/24 08/22/24 Unknown History intramuscular oil Exam Exam Date and Time: 09/04/24 0800 Airway Mallampati Class: III TM Dist: >3cm Neck ROM: Limited (pain d/t thoracic outlet syndrome) Loose/Missing/Broken Teeth: No (patient denies any loose or broken teeth) Heart: S1S2 Assessment and Plan Assessment Anesthesia Assessment: Anesthesia Plan Discussed and Chart Reviewed Final Anesthetic Review Family History of Problems with Anesthesia: No History of Problems with Anesthesia: No (Slow to wake sometimes) NPO: Yes ASA Class: III Final Preanesthetic Review: No Changes in Pt Med Stat, Meds/Allgs Chart Reviewed, Consent Obtained/Reviewed (boiler control technician at bedside for translation) and Anes Risks/Benef Reviewed Patient Risk: Low Procedure Risk: Intermediate Anesthetic Plan Anesthetic Plan: GA and Agree w/ Assess. and Plan Disposition: Standard PACU
--- NOTE | 2024-09-04 08:35 | PM.DS ---
DS: Providers Provider Date of Service: 09/04/24 Date of discharge: 09/04/24 Primary care physician: Jena Jorge NP DS: Summary Time Attestation Discharge Coordination Time (in mins): 12 Quality: Safe Use of Opioids Does Pt have an Active Cancer Diagnosis on the Problem List?: No Quality: Stroke Does the patient have a stroke diagnosis?: No Physical Exam Vital Signs: Vital Signs: Last Vital Signs Temp 97.9 F 09/04/24 06:37 Pulse 88 09/04/24 06:37 Resp 12 09/04/24 06:37 BP 127/85 09/04/24 06:37 Pulse Ox 96 09/04/24 06:37 O2 Del Method Room Air 08/22/24 09:56 BMI result Body Mass Index 33.7 Discharge Plan Discharge Patient Disposition: Home, Self-Care Referrals: Jena Jorge NP [Primary Care Provider, [facility]] - 1 Week Discharge Medications: New oxycodone 5 mg tablet 5 mg PO Q6H PRN (Reason: pain) Qty: 30 0RF Rx Instructions: Partial Fill upon patient request. Continued gabapentin 800 mg tablet 800 mg PO QID cyclobenzaprine 10 mg tablet 10 mg PO TID PRN (Reason: Muscle Spasm) estradiol 0.01 % (0.1 mg/gram) Cream 1 g VAGINAL 2XW Tyrvaya 0.03 mg/spray spray, metered, non-aerosol 0.03 mg INTRANASAL BID coQ10 (ubiquinol) DAILY acetaminophen 500 mg Tablet 1,000 mg PO Q6H PRN (Reason: Pain) vwvsinvmww-omrpamazxxopv-jrek 50-325-40 mg Tablet 2 tab PO Q6H PRN (Reason: Headache) Rx Instructions: do not exceed 6 tabs per 24 hrs famotidine 20 mg Tablet 20 mg PO BID PRN (Reason: Acid Reflux) meclizine 25 mg Tablet 25 - 50 mg PO BID PRN (Reason: Dizziness Or Vertigo) diazepam 2 mg tablet 2 mg PO TID PRN (Reason: Anxiety) diphenhydramine-acetaminophen [Tylenol PM Extra Strength] 25-500 mg Tablet 2 tab PO BEDTIME PRN (Reason: Insomnia) ondansetron 4 mg Tablet,Disintegrating 4 - 8 mg PO Q8H PRN (Reason: Nausea) oxycodone 5 mg Tablet 5 mg PO Q8H PRN (Reason: Pain) Sleep Well Gummy docusate sodium 100 mg Capsule 300 mg PO BEDTIME Beano 400 unit Tablet 400 unit PO DAILY PRN (Reason: Abdominal Discomfort) testosterone cypionate 200 mg/mL Oil 100 mg IM Q2W ketoconazole 2 % Cream 1 appl TOPICAL BID Cequa 0.09 % Dropperette 1 drp OPHTHALMIC (EYE) Q12H atorvastatin 40 mg tablet 40 mg PO DAILY triamterene-hydrochlorothiazid 37.5-25 mg tablet 1 tab PO DAILY tamsulosin 0.4 mg capsule 0.4 mg PO DAILY lisinopril 10 mg tablet 10 mg PO DAILY trospium 60 mg capsule,extended release 24hr 60 mg PO DAILY amlodipine 10 mg tablet 10 mg PO DAILY triamcinolone acetonide 0.1 % cream 1 appl topical BID-TID Held tramadol 50 mg tablet 200 mg PO Q6-8H PRN (Reason: pain) Hold Instructions: Resume on 10/04/24. May resume when Oxycodone Rx is complete naproxen 500 mg tablet 500 mg PO BID Hold Instructions: Resume on 09/05/24. hold until tomorrow Discharge Orders: Discharge Order (Routine); Ordered 09/04/24 Ordered By: Terrence Powell Diet: Advance to usual diet Activity on Discharge: As tolerated Activity Restrictions/Additional Instructions: After your spinal surgery we ask you to observe the following restrictions/guidelines: Activity: It is normal to feel some discomfort as you increase your activity, but that will improve with time. We ask you avoid heavy lifting or acitivities that cause pain. As a general rule, 8lbs is a safe limit for lifting right after surgery. Walk as much as you feel comfortable but not to exhaustion. You will feel extra tired the first few days after surgery. Stay well hydrated. It is OK to walk up and down stairs You may return to driving when you are off narcotics (such as vicodin, oxycodone, dilaudid, etc), and you are back to normal functional capacity. If you have any concerns please check with office before driving. Return to work is specific to each patient and each surgery, so please speak with your doctor/PA at first follow up. Please bring paperwork such as FMLA at that time if you need it filled out. Medications: Please hold your Naproxen and any other NSAID medications until tomorrow. We recommend you take 1,000mg Tylenol every 8 hours for the first few weeks after surgery, if you do not have any liver issues and can tolerate this medication. Do not exceed 4,000mg daily. We will give you a short supply of narcotics after surgery (usually one weeks worth). If you need more please call the office but do not use more than prescribed. You will need to give our office 48 hours notice if you need narcotics refilled and we do not fill narcotics on weekends or evenings. If you are on a narcotic, it is a good idea to take a stool softener such as colace or senna to avoid constipation If you take blood thinner such as aspirin, Plavix, Coumadin, Effient, Eliquis etc for conditions such as Afib, DVT, Pulmonary embolus, coronary disease, stents etc please speak with your surgeon about specific details as to when you can resume these medications. You can resume NSAIDs on post op day 1 (eg: Motrin, Naproxen, etc). Follow up: Please call the office, , after surgery to arrange a 3 week follow up for wound check. Wound Care: You may remove your dressing on the first day after surgery. ?You may ?leave open to air. Please do not remove the steri strips underneath. they will fall off on their own in one week. IT IS NORMAL FOR THE WOUND TO OOZE OR BE BLOODY FOR A FEW DAYS AFTER SURGERY. ?IF THIS HAPPENS JUST PLACE NEW DRESSING OVER IT TO AVOID STAINING CLOTHES. You may shower on post op day # 1 We ask that you do not let the water soak the wound. If it does get wet, just towel dry lightly. Please do not scrub your incision or place any type of chemical/ointment on the wound. No tub baths, pools or jacuzzis for one month. If you have any leaking or redness from your wound, or fevers, please call the office. Print Language: [place] Sign Language
[2024-09-04] MEDS: Acetaminophen 1,000 MG/100 ML PIGGYBACK 400 MG IV (09:30)
--- NOTE | 2024-09-04 09:30 | W.PM.OPN ---
Operative Note Operative Note Date of Service: 09/04/24 Narrative: Preoperative Diagnosis: L4-5 spinal stenosis/lateral recess stenosis/neural foraminal stenosis Operation: Right L4-5 Laminotomy, Partial facetectomy and foraminotomy with use of microscope Consent Informed Consent was obtained for this operation. I have explained the nature, purpose and benefits of the operation. I have discussed the risks and benefit of the operation including possible complications or adverse events with patient/family. Alternative(s) were discussed with the patient with their relative benefits and risks as well as the consequences of not accepting the operation were included in obtaining consent. Surgeon: MENDOZA CAROLINA MD, PHD Procedure Assisted By: Terrence Moreno, Galdino Description of Procedure This patient is suffering from right L5 radiculopathy due to L4-5 lateral recess stenosis. The patient was offered a decompression. The procedure complications were explained. The patient was consented. The patient was brought to the operating room and endotracheally intubated. The patient was turned in prone position on the Enrique frame. Prep and drape was done followed by timeout. The Physician family service assistant provided access. A mid lumbar incision was made followed by release of the paravertebral muscle on the right side to expose the L4-5 lamina and facet joints. An intraoperative x-ray was obtained to confirm the correct level. The microscope was brought in. I took over the procedure. The high-speed drill was used to do a right L5 laminotomy until flavum ligament was reached. A #2 Kerrison was used to expand the laminotomy near flush to the pedicles and to include a partial facetectomy. The flavum ligament was opened and resected with a #3 Kerrison to decompress the underlying thecal sac. The flavum ligament was removed to decompress the lateral recess and the exiting L5 nerve root. A long nerve hook could be easily passed along the medial side of the pedicles as a sign of adequate decompression. The microscope was removed. Hemostasis was done. The physician family service assistant close the Incision in 2 layers. Steri-Strips were used to approximate incision. An OpSite with Tegaderm was used to cover the incision. All sponge needle counts were correct. Patient was extubated and transported in stable is to recovery room. Anesthesia: General Estimated Blood Loss (ml): 20 Complications: None Duration of Surgery: Under 40 Minutes Postoperative Plan: Discharge to home
[2024-09-04 09:57] VITALS: BP 139/94; PULSE 94; RESP 20; TEMP 36.3; O2SAT 95
[2024-09-04 10:02] VITALS: BP 149/95; PULSE 95; RESP 17; O2SAT 95
[2024-09-04 10:05] VITALS: BP 140/82; PULSE 95; RESP 16; O2SAT 95
[2024-09-04 10:10] VITALS: BP 139/94; PULSE 93; RESP 16; O2SAT 95
[2024-09-04 10:25] VITALS: BP 135/96; PULSE 95; RESP 16; TEMP 36.1; O2SAT 97
== END 2024-09-04 11:43 | disposition home or self-care (01) ==
PROVIDERS: PCP Nurse Practitioner Adult Health; Visit Provider Neurological Surgery
PROC: (CPT 63047; principal; 2024-09-04 08:40)
DX: M48.062 Spinal stenosis, lumbar region with neurogenic claudication (principal); M54.16 Radiculopathy, lumbar region; G89.4 Chronic pain syndrome; M54.50 Low back pain, unspecified; R26.2 Difficulty in walking, not elsewhere classified; H91.90 Unspecified hearing loss, unspecified ear; R42 Dizziness and giddiness; I10 Essential (primary) hypertension; E78.00 Pure hypercholesterolemia, unspecified; I73.00 Raynaud's syndrome without gangrene; Z79.1 Long term (current) use of non-steroidal anti-inflammatories (NSAID); Z79.899 Other long term (current) drug therapy; Z87.890 Personal history of sex reassignment; Z98.890 Other specified postprocedural states
CPT/HCPCS: 63047; J0131; J1100; J1885; J2003; J2250; J2405; J2704; J3010; J3371

== ENCOUNTER → 2024-09-04 05:51 | Outpatient (BNV) | payer OTHER, SELFPAY | PROVIDERS: PCP Nurse Practitioner Adult Health; Visit Provider Neurological Surgery | DX: M48.062 Spinal stenosis, lumbar region with neurogenic claudication (principal) | CPT/HCPCS: 63047; 99499 ==

== ENCOUNTER 2024-09-26 13:08 | Outpatient (AMB) | payer OTHER, SELFPAY ==
--- OUTSIDE RECORDS SUMMARY | 2024-09-26 13:10 | XMS_ITS | Encounter Summary ---
Author Organization [facility] Address [address] [facility] [address] [place] [address] Phone Care Team Providers Care Mechatronics Technician Name Role Phone Terrence Sunshine Primary Care Provider Sergio Camacho MD Primary Care Provider [phone] Christ Berman MD Primary Care Provider Hany Rucker MD Unavailable [phone] Encounter Details Date Type Department Care Team (Late st Contact Info) Description 12/26/2021 Procedure Pass [address] [address] Social History Tobacco Use Types Packs/Day Years Used Date Smoking Tobacco: Never Smokeless Tobacco: Never Sex and Gender Information Value Date Recorded Sex Assigned at Not on file Legal Sex Male 9:35 PM EDT Gender Identity Not on file Sexual Orientation Not on file documented as of this encounter Plan of Treatment Upcoming Encounters Date Type Department Care Team (Late st Contact Info) Description 08/15/2024 Procedure Pass [facility] [place] [address] [facility], 6th [place] [address] 08/15/2024 Procedure Pass [facility] for [facility]patient Care, Radio Flouroscopy [address] [place] [address] 10/28/2024 12:30 PM EDT Appointment [facility] [place] [address], 6th [place] [address] Hany Rucker MD [address] [place] [address] [place] [address] [email or web address] 10/28/2024 1:30 PM EDT Appointment [facility] Outpatient Care, Radio Flouroscopy [address] [place] [address] Mirna Roblero, DEPARTMENT MGR, DNP 55 [facility] Sammy [address] [place] [phone] [email or web address] documented as of this encounter Visit Diagnoses Not on filedocumented in this encounter Care Teams Mechatronics Technician Relationship Specialty Start Date End Date Terrence Sunshine PA [email or web address] PCP - General Unknown Provider Specialty 07/07/21 01/09/22 Sergio Camacho MD [email or web address] PCP - General Family Medicine 01/10/22 09/03/23 Christ Berman MD [address] [place] [address] [email or web address] PCP - General Family Medicine 09/04/23 Hany Rucker MD [address] [place] [address] [place] [address] [email or web address] Thoracic Surgery 08/15/24 documented as of this encounter Additional Source Comments The information contained in this document represents components of the legal health record. It is not the complete legal health record.[facility]
--- OUTSIDE RECORDS SUMMARY | 2024-09-26 13:10 | XMS_ITS | Data Portability ---
Author Organization [place] [facility], Allergy Address [address] [address] Care Team Providers Care Decal Cutter Name Role Phone CALINNATE Primary Care Provider MICKI CR Referring Provider Assessment Encounter Date Assessment Date Assessment LastModified by Organization Details LastModified Time 07/25/2024 07/25/2024 Patient with episodic positionally induced vertigo. Saniya-Hallpike was positive for vertigo and rotary nystagmus with the head to the left. We discussed that the patient s pattern of symptoms and physical exam findings are most consistent with benign paroxysmal positional vertigo (BPPV). The pathophysiology of BPPV was discussed in detail. Patient was provided with a referral to [facility] for Dima maneuvers and vestibular therapy.We discussed the fact that treatment of BPPV can require anywhere from 1 to 6 treatments for successful results, and has approximately 95% success rate in eliminating symptoms. BPPV can recur and if the classic positionally induced symptoms do recur, patient can call for further referrals. Multifactorial dizzy with his recent notation of diplopia and need for prism lenses may challenge the resolution of his dizzy sx. His exam also showed tympanosclerosis bilaterally with some tenderness to palpation around left TMJ and mastoid. I do not believe there is any bulging of his tympanic membrane to suggest active increased pressure from fluid. The middle ear effusion will likely resolve with time. He also described pressure headaches that I cannot attribute specifically to his BPPV or effusion. He may need to work with neurology if they persist [email or web address] Not available 07/25/2024 14:18:37 Plan of Treatment Reminders Order Date Submit Date Provider Last Modified By Organization Details Last Modified Time Details Appointments None recorded. Lab None recorded. Referral vestibula r therapy referral 2024 025 [email or web address] [facility], [address], [address], [place], [address], 16:44:45 Procedures None recorded. Surgeries None recorded. Imaging None recorded. Medication Orders None recorded. Patient TargetsNo targets recorded. Patient InstructionsNo instructions recorded. Reason for Referral Vestibular Therapy Referral for Benign paroxysmal positional vertigo patient will be called with an appointment Referring Physician: Cesar Bustillos, Otolaryngology, Encounter Date: 07/25/2024 Results Created Date Observation Date Name Description Value Unit Range Abnormal Flag Note LastModifiedBy Organization Detail LastModifiedTime 07/26/1905/15/2024 MRI, cervi tay spine , w/o contr ast No observ ation record ed. [email or web address] Not Available 07/10 14:25:56 Result Notes None recorded. Problems Name Problem SNOMED Code Status Onset Date Resolution Date Notes Provider Name and Address Organization Details Recorded Time Benign paroxysmal positional vertigo 587416579 Active 2024 CESAR BUSTILLOS MD [address] [place] [address], [place], [phone], [facility] 5 14:12:52 Acute transudative otitis media 27909879 Active 2024 CESAR BUSTILLOS MD [address] [place] [address], [place], [phone], [facility] 5 14:13:28 Problem Notes None recorded. Medical Equipment None Reported. Allergies Allergen ID Allergen Name Allergen Category Reaction Reaction Severity Criticality Documentation Date Start Date Code Code System Note Provider Name and Address Organization Details Recorded Time 648819 Cipro medicatio n hives Not available Not available 07/25/202478779 3 RxNorm MICHELLE COMI null [place] [facility] 13:52:50 053215 Ceclor medicatio n hives Not available Not available 07/25/2024 5 RxNorm MICHELLE COMI null, [place] - [facility] 13:53:48 Medications Name Sig Start Date Stop Date Status Note LastModified by Organization Details LastModified Time cyclobenzap rine 10 mg tablet TAKE 1 TABLET BY MOUTH 3 TIMES A DAY NEEDED. DO NOT DRIVE WHILE TAKING. active Not Available Not Available No t Available atorvastati n 40 mg tablet TAKE 1 TABLET BY MOUTH EVERY DAY active Not Available Not Available No t Available gabapentin 600 mg tablet TAKE 1 TABLET 3 TIMES A DAY BY ORAL ROUTE. 07/25 completed Not Available Not Available Not Available ondansetron HCl 4 mg tablet TAKE 1 OR 2 TABLETS BY MOUTH EVERY 8 HOURS NEEDED FOR NAUSEA active Not Available Not Available No t Available prednisone 20 mg tablet TAKE 2 TABLETS BY MOUTH EVERY DAY FOR 4 DAYS active Not Available Not Available No t Available sumatriptan 50 mg tablet PLEASE SEE ATTACHED FOR DETAILED DIRECTION S active Not Available Not Available No t Available tramadol 50 mg tablet TAKE 1 TABLET BY MOUTH EVERY 6 HOURS NEEDED FOR MODERATE PAIN active Not Available Not Available No t Available butalbital- acetaminoph en-caffeine 50 mg-325 mg-40 mg tablet TAKE 1 TO 2 TABLETS BY MOUTH EVERY 4 HOURS NEEDED FOR HEADACHE. MAX 6 TABS PER DAY active Not Available Not Available No t Available prednisolon e acetate 1 % eye drops,suspe nsion INSTILL 1 DROP INTO BOTH EYES THREE TIMES A DAY USE FOR 2 WEEKS THEN STOP active Not Available Not Available No t Available tamsulosin 0.4 mg capsule TAKE 1 CAPSULE BY MOUTH AT BEDTIME DIRECTED active Not Available Not Available No t Available gabapentin 800 mg tablet TAKE 1 TABLET BY MOUTH FOUR TIMES A DAY active Not Available Not Available No t Available meclizine 25 mg tablet TAKE 1 TO 2 TABLETS BY MOUTH EVERY 6 TO 8 HOURS NEEDED FOR VERTIGO *NOT COVERED active Not Available Not Available No t Available diazepam 2 mg tablet TAKE 1 TABLET BY MOUTH THREE TIMES A DAY NEEDED FOR 7 DAYS active Not Available Not Available No t Available amlodipine 10 mg tablet TAKE 1 TABLET BY MOUTH EVERY DAY active Not Available Not Available No t Available lisinopril 10 mg tablet TAKE 1 TABLET BY MOUTH EVERY DAY active Not Available Not Available No t Available gabapentin 300 mg capsule TAKE 1 CAPSULE BY MOUTH 3 TIMES A DAY 07/25 completed Not Available Not Available Not Available triamterene 37.5 mg-hydrochl orothiazide 25 mg tablet TAKE 1 TABLET BY MOUTH EVERY DAY active Not Available Not Available No t Available estradiol 0.01% (0.1 mg/gram) vaginal cream APPLY 1 GRAM TOPICALLY TWICE WEEKLY 07/25 completed Not Available Not Available Not Available doxycycline hyclate 100 mg tablet TAKE 1 TABLET BY MOUTH TWO TIMES A DAY FOR 7 DAYS active Not Available Not Available No t Available naproxen 500 mg tablet TAKE 1 TABLET BY MOUTH TWICE A DAY NEEDED active Not Available Not Available No t Available oxycodone 5 mg tablet TAKE 1 TABLET BY MOUTH EVERY 6 HOURS NEEDED FOR SEVERE PAIN active Not Available Not Available No t Available trospium ER 60 mg capsule,ext ended release 24 hr TAKE 1 CAPSULE BY MOUTH EVERY DAY active Not Available Not Available No t Available Xiidra 5 % eye drops in a dropperette INSTILL 1 DROP INTO BOTH EYES TWICE A DAY active Not Available Not Available No t Available Cequa 0.09 % eye drops in a dropperette INSTILL ONE DROP IN BOTH EYES TWICE DAILY active Not Available Not Available No t Available Tyrvaya 0.03 mg/spray nasal spray Instill one spray into both nostrils twice daily APPROXIMA TELY 12 HOURS apart active Not Available Not Available No t Available Vitals Date Recorded Body height Body mass index (BMI) Body weight Provider Name and Address Organization Details Last Updated DateTime 07/25/2024 175.26 cm 31.7 kg/m2 56992.36 g [facility] 07/25/2024 13:51:02 Social History None recorded. Functional Status Question Answer Note LastModified by Organization D etails LastModified Time What is your level of alcohol consumption? None [email or web address] Information not available 07/25/2024 Mental Status None recorded. Family History Nothing Reported. Medical History Condition Response Migraines Y Arthritis Y Hypertension Y Past Encounters Encounter ID Performer Location Encounter Start Date Encounter Closed Date Diagnosis/Indication Diagnosis SNOMED-CT Code Diagnosis ICD10 Code Diagnosis Note [id number] CESAR BUSTILLOS MD [facility] [address] [address] 07/25/2024 13:08:22 07/25/2024 14:23:27 Benign paroxysmal positional vertigo 606469937 H81.12 Acute adams sudative otitis media 65222467 H65.192 Health Concerns Section Related Observation LastModified by Organization Detai ls LastModified Time None Recorded Concern Status LastModified by Organization Details LastModified Time None Recorded Advance Directives Directive None Recorded Payers Insurance Date Sequence Insurance Name Policy Number Policy Rapp Covered Member ID Rapp Member ID Guarantor Name 07/25/2024 1 [facility] Lux De Souza [id number] Lux De Souza Notes Date Note Type Note Provider Name and Address Organization Details Recorded Time 07/25/2024 text/html IPad ASLdizzyesc orted by who is helping translateroom spinning when rolls overdouble vision - seen at hook and eye attacher who ordered prism stickers for glassesin wheelchair feels dizzy constantlyimproves if lays still with eyes closedonset 06/15/24, then in [facility] ER 06/21/24 admitted for 5 days for ear infectionleft otalgia with no otorrheareferred to vestibular rehab - has not been seen yet 06/26/2024 [facility] MRI IAC with and without contrastNo mass or abnormal enhancement in the IAC or CPA. Complete opacification of left mastoid air cells and middle ear. Partial opacification right mastoid air cells. Similar to previous CT scan from 06/22/2024 06/22/2024 [facility] CT head noncontrast Opacification of inferior left mastoid air cells and middle ear. Opacification partial right mastoid air cells. 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
--- OUTSIDE RECORDS SUMMARY | 2024-09-26 13:10 | XMS_ITS | Clinical Summary ---
Author Organization [facility] Address [address] [place] [address] Care Team Providers Care Fiber Locking Supervisor Name Role Phone Maximiliano Ocampo MD Primary Care Provider [phone] Allergies Active Allergy Reactions Criticality Noted Date Comments Cefaclor 09/20/2009 [facility] Comment: Category: Adverse Reaction; Ciprofloxacin 09/20/2009 [facility] Comment: Category: Adverse Reaction; Medications Testosterone Cypionate (DEPO-TESTOTERO NE) 200 MG/ML injection inject 100mg/ml [id number] 1 5 09/20/2009 Active Simvastatin (ZOCOR) 40 [...] 64 10/25/2010 2:18 PM EDT Temperature 37.1 C (98.7 F) 09/16/2012 2:17 PM EDT Respiratory Rate 12 10/25/2010 2:18 PM EDT [...] - 2023-2 5 season) 2023 Influenza (#1) 2024 12/06/2012, 02/10/2012 HPV Vaccine Aged Out No [...] age to complete this topic Care Teams Fiber Locking Supervisor Relationship Specialty Start Date End Date Maximiliano Ocampo [facility] [address] [place] [address] PCP - General 10/16/22
--- NOTE | 2024-09-26 13:32 | A.SPINEOV_ITS ---
Intake Visit Reasons: 1st Post-op Visit Intake Note: Mr. De Souza is here today for his 1st post op. Protozoologist Required: Yes Protozoologist Name: ASL- Tablet Allergies cefaclor (From Ceclor) Allergy (Severe, Verified 09/04/24 06:33) Hives,swelling ciprofloxacin (From Cipro) Allergy (Severe, Verified 09/04/24 06:33) Hives, swelling shellfish derived (shellfish) Allergy (Verified 09/04/24 06:33) Hives Assessment & Plan Assessment & Plan (1) Spinal stenosis, lumbar region with neurogenic claudication: Code(s): M48.062 - Spinal stenosis, lumbar region with neurogenic claudication Category: Medical Plan glass etcher helper [id number] used for this visit. The patient is 3 weeks out from a right L4-5 decompression for severe right leg pain. Unfortunately the surgery did not help the symptoms. He still has the same pain he had before surgery radiating from his back down his leg into his calf and foot. I went back and reviewed the operative note which shows that the surgery went well and that the nerve was nicely decompressed at the time of surgery. Thankfully strength in his foot is still good and his wound is healing up nicely. He has still been taking the Tylenol and oxycodone because the pain has been so bad. Having a very hard time standing and walking, using a walker. His reports that after surgery he had a lot of coughing right immediately postoperatively. I am wondering if maybe he does not have a disc herniation or maybe a small hematoma that is slow to resolve that is giving him the pain. I think it is worth looking am going to order a lumbar MRI with and without gadolinium to rule this out. I refilled his oxycodone. Lux Venegas MD, PhD [facility] Orders: Orders MR lumbar spine wo/w con Today M48.062 - Spinal stenosis, lumbar region with neurogenic claudication Medications: Refilled oxycodone Partial Fill upon patient request. 5 mg PO Q6-8H PRN 28 tabs 0RF pain Coding Level of Care Code Global (21163) Diagnoses Spinal stenosis, lumbar region with neurogenic claudication M48.062
== END 2024-09-26 14:37 | disposition home or self-care (01) ==
LOC: HO.HNS 13:08
PROVIDERS: PCP Nurse Practitioner Adult Health; Visit Provider Physician Assistant
DX: M48.062 Spinal stenosis, lumbar region with neurogenic claudication (principal)
CPT/HCPCS: 99024

== ENCOUNTER → 2024-10-08 09:03 | Outpatient (BNV) | payer OTHER, SELFPAY | PROVIDERS: PCP Nurse Practitioner Adult Health; Visit Provider Radiology Diagnostic Radiology | DX: M47.816 Spondylosis without myelopathy or radiculopathy, lumbar region (principal) | CPT/HCPCS: 72158 ==

== ENCOUNTER 2024-10-08 09:04 | Outpatient (REF) | payer OTHER, SELFPAY ==
--- NOTE | ~2024-10-08 | MR_ITS ---
EXAMINATION: MR LUMBAR SPINE WITHOUT AND WITH CONTRAST CLINICAL INFORMATION: Weakness, numbness and contains both lower extremities, right greater than the left side. COMPARISON: None available. TECHNIQUE: MRI of the lumbar spine was obtained using routine sequences with and without contrast. Intravenous contrast: Gadolinium based 10.0 mL. No reported immediate complications. FINDINGS: Last rib-bearing vertebra labeled T12. There is a right hemilaminectomy with preservation of the ligamentum flavum at L4-5. There is an irregular shaped, 5 x 3 x 4 cm heterogeneously enhancing signal abnormality along the trajectory of the surgical site extending from the posterior right L4-5 facet joint to the medial lumbar muscles into the fat planes. There is a 4 x 3 x 3 cm septated peripheral enhancing fluid signal characteristic with layering isointense T2 signal from the right midline incision site to the fat planes extending into the muscular plane. There is no epidural hematoma or fluid collection. Probable air bubbles along the right hemilaminectomy surgical site. There is subtle bone marrow enhancement of the right L4-5 facet/pars interarticularis and right transverse processes of L4. No abnormal enhancement within the neural elements of the thecal sac. The conus medullaris ends at superior endplate of L2 with normal signal. Modic type II endplate changes at L5-S1. Multilevel disc desiccation. Focal hyperintense T2 signal in the posterior L4-5 disc likely focal annular fissure. Grade 1 retrolisthesis L5-S1. T12-L1: No disc herniation. No neuroforamina stenosis. L1-2: No disc herniation. No neuroforamina stenosis. L2-3: Broad-based disc bulging. No compression upon neural elements. L3-4: Broad-based disc bulging. Facet joint and ligamentum flavum hypertrophy. Reduced AP diameter of the thecal sac and neuroforamina. L4-5: Postsurgical changes as described initially. L5-S1: Broad-based disc bulging. Facet joint and ligamentum flavum hypertrophy. Prominent epidural fat in a circumferential fashion reducing the AP diameter of the thecal sac. There is bilateral neuroforamina stenosis encroaching the exiting nerve roots. 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 MR/MR lumbar spine wo/w con IMPRESSION: Hematoma versus phlegmon center along the muscular plane right hemilaminectomy L4-5 with the questionable osteomyelitis right facet joint. Multiseptated hematoma versus phlegmon/abscess center fat planes of the right midline incision at L4 level. Electronically signed by: Celso Valadez MD 10/08/2024 10:56 AM EDT
--- OUTSIDE RECORDS SUMMARY | 2024-10-08 09:33 | XMS_ITS | Encounter Summary ---
Author Organization [facility] Address [address] [facility] [address] [place] [address] Phone Care Team Providers Care Aviation Medicine Specialist Name Role Phone Terrence Sunshine Primary Care Provider Sergio Camacho MD Primary Care Provider [phone] Christ Berman MD Primary Care Provider Hany Rucker MD Unavailable [phone] Encounter Details Date Type Department Care Team (Late st Contact Info) Description 12/26/2021 Procedure Pass [address] [address] Social History Tobacco Use Types Packs/Day Years [...] st Contact Info) Description 08/15/2024 Procedure Pass [facility] - CT [address] [facility], 6th [place] [address] 08/15/2024 Procedure Pass [facility] for Outpatient Care, Radio Flouroscopy [address] [place] [address] 10/28/2024 12:30 PM EDT Appointment [facility] - CT [address]th [place] [address] Hany Rucker MD 55 [facility] FND [address] [place] [id number] [email or web address] 10/28/2024 1:30 PM EDT Appointment [facility] Outpatient Care, Radio Flouroscopy [address] [place] [address] Mirna Roblero, INSURANCE SALES SUPERVISOR, DNP 55 [facility] Sammy [address] [place] [phone] [email or web address] 07/24/2025 11:50 AM EDT Procedure visit [facility] Vestibular Lab [address] [place] [address] Lc Rg MD [address] [place] [address] [email or web address] 07/24/2025 12:45 PM EDT Office Visit [facility] Otoneurology [address] [place] [address] Lc Rg MD [address] [place] [address] [email or web address] documented as of this encounter Visit Diagnoses Not on filedocumented in this encounter Care Teams Aviation Medicine Specialist Relationship Specialty Start Date End Date Terrence Sunshine PA [email or web address] PCP - General Unknown Provider Specialty 07/07/21 01/09/22 Sergio Camacho MD [email or web address] PCP - General Family Medicine 01/10/22 09/03/23 Christ Berman MD [address] [place] [address] [email or web address] PCP - General Family Medicine 09/04/23 Hany Rucker MD 55 [facility] [address] [place] [address] [email or web address] Thoracic Surgery 08/15/24 documented as of this encounter Additional Source Comments The information contained in this document represents components of the legal health record. It is not the complete legal health record.[facility]
--- OUTSIDE RECORDS SUMMARY | 2024-10-08 09:33 | XMS_ITS | Clinical Summary ---
Author Organization [facility] Address [address] [place] [address] Care Team Providers Care Insulation Estimator Name Role Phone Maximiliano Ocampo MD Primary Care Provider Allergies Active Allergy Reactions Criticality Noted Date Comments Cefaclor 09/20/2009 [facility] Comment: Category: Adverse Reaction; Ciprofloxacin 09/20/2009 [facility] Comment: Category: Adverse Reaction; Medications Testosterone Cypionate (DEPO-TESTOTERO NE) 200 MG/ML injection inject 100mg/ml [id number] 1 5 09/20/2009 Active Simvastatin (ZOCOR) 40 [...] Influenza (#1) 2024 12/06/2012, 02/10/2012 HPV Vaccine (No Doses Required) Completed Hep A Aged Out No longer eligi ble based on patient's age to complete this topic Hib Aged Out No longer eligi ble based on patient's age to complete this topic Meningococcal ACWY Aged Out No longer eligible based on patient's age to complete this topic Care Teams Insulation Estimator Relationship Specialty Start Date End Date Maximiliano Ocampo MD [facility] [address] [place] [address] PCP - General 10/16/22
== END 2024-10-08 09:05 | disposition home or self-care (01) ==
LOC: HO.MRI 09:04
PROVIDERS: PCP Nurse Practitioner Adult Health; Visit Provider Registered Nurse Emergency
DX: M48.062 Spinal stenosis, lumbar region with neurogenic claudication (principal)
CPT/HCPCS: 72158; A9585

== ENCOUNTER 2024-10-17 13:28 | Outpatient (AMB) | payer OTHER, SELFPAY ==
--- OUTSIDE RECORDS SUMMARY | 2024-10-17 13:32 | XMS_ITS | Clinical Summary ---
Author Organization [facility] Address [address] [place] [address] Care Team Providers Care Pan Washer Name Role Phone Maximiliano Ocampo MD Primary Care Provider [phone] Allergies Active Allergy Reactions Criticality Noted Date Comments Cefaclor 09/20/2009 [facility] Comment: Category: Adverse Reaction; Ciprofloxacin 09/20/2009 [facility] Comment: Category: Adverse Reaction; Medications Testosterone Cypionate (DEPO-TESTOTERO NE) 200 MG/ML injection inject 100mg/ml [id number] 1 5 09/20/2009 Active Simvastatin (ZOCOR) 40 [...] age to complete this topic Care Teams Pan Washer Relationship Specialty Start Date End Date Maximiliano Ocampo MD [facility] [address] [place] [address] PCP - General 10/16/22
--- OUTSIDE RECORDS SUMMARY | 2024-10-17 13:32 | XMS_ITS | Encounter Summary ---
Author Organization [facility] Address [address] [facility] [address] [place] [id number] Phone Care Team Providers Care Forensic Accountant Name Role Phone Terrence Sunshine Primary Care Provider [phone] Sergio Camacho MD Primary Care Provider [phone] Christ Berman MD Primary Care Provider [phone] Hany Rucker MD Unavailable [phone] Encounter Details Date Type Department Care Team (Late st Contact Info) Description 12/26/2021 Procedure Pass [address] [address] Social History Tobacco Use Types Packs/Day Years [...] st Contact Info) Description 08/15/2024 Procedure Pass [facility] - [place] [address] [facility], [address]th [place] [address] 08/15/2024 Procedure Pass [facility], Radio Flouroscopy [address] [place] [address] 10/28/2024 12:30 PM EDT Appointment [facility] - [place] [address] [place] [address] Hany Rucker MD 55 [facility] FND [address] [place] [id number] [email or web address] 10/28/2024 1:30 PM EDT Appointment [facility] Outpatient Care, Radio Flouroscopy [address] [place] [address] Mirna Roblero, CHEMICAL PACKAGER, DNP 55 [facility] Sammy [address] [place] [phone] [email or web address] 07/24/2025 11:50 AM EDT Procedure visit [facility] Vestibular Lab [address] [place] [address] Lc Rg MD [address] [place] [phone] [email or web address] 07/24/2025 12:45 PM EDT Office Visit [facility] Otoneurology [address] [place] [address] Lc Rg MD [address] [place] [phone] [email or web address] documented as of this encounter Visit Diagnoses Not on filedocumented in this encounter Care Teams Forensic Accountant Relationship Specialty Start Date End Date Terrence Sunshine PA PCP - General Unknown Provider Specialty 07/07/21 01/09/22 Sergio Camacho MD [email or web address] PCP - General Family Medicine 01/10/22 09/03/23 Christ Berman MD [address] [place] [address] [email or web address] PCP - General Family Medicine 09/04/23 Hany Rcuker MD [address] [facility] 7 [place] [address] [email or web address] Thoracic Surgery 08/15/24 documented as of this encounter Additional Source Comments The information contained in this document represents components of the legal health record. It is not the complete legal health record.[facility]
--- NOTE | 2024-10-17 14:06 | A.SPINEOV_ITS ---
Intake Visit Reasons: MRI F/u Intake Note: Mr. De Souza is here today to further discuss the results of his MRI. Traveling Phlebotomist Required: Yes Traveling Phlebotomist Name: Tablet for ASL Allergies cefaclor (From Ceclor) Allergy (Severe, Verified 09/04/24 06:33) Hives,swelling ciprofloxacin (From Cipro) Allergy (Severe, Verified 09/04/24 06:33) Hives, swelling shellfish derived (shellfish) Allergy (Verified 09/04/24 06:33) Hives Assessment & Plan Assessment & Plan (1) Spinal stenosis, lumbar region with neurogenic claudication: Code(s): M48.062 - Spinal stenosis, lumbar region with neurogenic claudication Category: Medical Plan Dear colleague, On 10/17/2024, I saw for postoperative visit Lux De Souza. He underwent a right L4-5 decompression for right lumbar radiculopathy on 09/04/2024. Unfortunately, the surgery has not helped his pain. In fact, he states that he has more back pain and is regressing. We repeated an MRI that shows an excellent decompression of the surgical site. There is a subcutaneous collection that is suspicious for hematoma. The states that he had a lot of oozing from the incision for several days. He denies fevers. On exam there is no pain on axial loading. The incision is healed. There is mild discomfort to touch. I reiterated that not every surgery is going to be successful. The extra pain or prolonged pain he is experiencing seeing maybe related to the removal of the subcutaneous hematoma. I would like to follow-up in 6 weeks to assess the situation. We may even repeat an MRI to demonstrate that the collection is getting smaller. We just refilled his script for oxycodone which he takes sparsely. Hamzah Venegas MD, PhD Spine Fellowship Trained Neurosurgeon Director, [facility] Coding Level of Care Code Global (02866) Diagnoses Spinal stenosis, lumbar region with neurogenic claudication M48.062
== END 2024-10-17 14:32 | disposition home or self-care (01) ==
LOC: HO.HNS 13:29
PROVIDERS: PCP Nurse Practitioner Adult Health; Visit Provider Neurological Surgery
DX: M48.062 Spinal stenosis, lumbar region with neurogenic claudication (principal)
CPT/HCPCS: 99024

== ENCOUNTER 2024-11-28 14:06 | Outpatient (AMB) | payer OTHER, SELFPAY ==
--- OUTSIDE RECORDS SUMMARY | 2024-11-28 14:11 | XMS_ITS | Encounter Summary ---
Author Organization [facility] Address [address] [place] [address] Phone Care Team Providers Care Retail Account Manager Name Role Phone Terrence Sunshine Primary Care Provider Sergio Camacho MD Primary Care Provider [phone] Christ Berman MD Primary Care Provider Hany Rucker MD Unavailable [phone] Encounter Details Date Type Department Care Team (Late st Contact Info) Description 12/26/2021 Procedure Pass [address] [address] Social History Tobacco Use Types Packs/Day Years [...] Care Team (Late st Contact Info) Description 07/24/2025 11:50 AM EDT Procedure [place] [facility] [address] [place] [address] Lc Rg MD [address] [place] [phone] [email or web address] 07/24/2025 12:45 PM EDT Office Visit [facility] [place] [address] [address] Lc Rg MD [address] [place] [address] [email or web address] documented as of this encounter Visit Diagnoses Not on filedocumented in this encounter Care Teams Retail Account Manager Relationship Specialty Start Date End Date Terrence Sunshine PA [email or web address] PCP - General Unknown Provider Specialty 07/07/21 01/09/22 Sergio Camacho MD [email or web address] PCP - General Family Medicine 01/10/22 09/03/23 Christ Berman MD [address] [place] [address] [email or web address] PCP - General Family Medicine 09/04/23 Hany Rucker MD [address] [place] [phone] [email or web address] Thoracic Surgery 08/15/24 documented as of this encounter Additional Source Comments The information contained in this document represents components of the legal health record. It is not the complete legal health record.[facility]
--- OUTSIDE RECORDS SUMMARY | 2024-11-28 14:11 | XMS_ITS | Encounter Summary ---
Author Organization [facility] Address [address] [place] [address] Phone Care Team Providers Care Ndt Inspector Name Role Phone Christ Berman MD Primary Care Provider [phone] Hany Rucker MD Unavailable [phone] Encounter Details Date Type Department Care Team (Late st Contact Info) Description 08/15/2024 Procedure Pass [facility] - [place] [address] [facility], 6th [place] [address] Social History Tobacco Use Types Packs/Day Years Used Date Smoking Tobacco: Never Smokeless Tobacco: Never Alcohol Use Standard Drinks/Week Comments Never 0 (1 standard drink = 0.6 oz pur e alcohol) Education Answer Date Recorded Are you interested in more education? Not on sean e 07/07/2022 Are you concerned about learning? Not on file 07/07/2022 No 07/07/2022 No 07/07/2022 Digital Access Answer Date Recorded No 08/04/2022 No 08/04/2022 Reliable internet access at home? Not on file 08/04/2022 Device with a working camera? Not on file Sex and Gender Information Value Date Recorded Sex Assigned at Not on file Legal Sex Male 9:35 PM EDT Gender Identity Not on file Sexual Orientation Not on file documented as of this encounter Plan of Treatment Upcoming Encounters Date Type Department Care Team (Late st Contact Info) Description 07/24/2025 11:50 AM EDT Procedure visit [facility] [address] [place] [address] Lc Rg MD [address] [place] [address] [email or web address] 07/24/2025 12:45 PM EDT Office Visit [facility] Otoneurology [address] [place] [address] Lc Rg MD [address] [place] [address] [email or web address] documented as of this encounter Visit Diagnoses Not on filedocumented in this encounter Care Teams Ndt Inspector Relationship Specialty Start Date End Date Christ Berman MD [address] [place] [address] [email or web address] PCP - General Family Medicine 09/04/23 Hany Rucker MD [address] [place] [phone] [email or web address] Thoracic Surgery 08/15/24 documented as of this encounter Additional Source Comments The information contained in this document represents components of the legal health record. It is not the complete legal health record.[facility]
--- OUTSIDE RECORDS SUMMARY | 2024-11-28 14:11 | XMS_ITS | Clinical Summary ---
Author Organization [facility] Address [address] [place] [phone] Phone Care Team Providers Care Roller Gold Leaf Name Role Phone Christ Berman MD Primary Care Provider [phone] Hany Rucker MD Unavailable [phone] Allergies Active Allergy Reactions Criticality Noted Date Comments Cefaclor Rash Low 06/25/2014 Ciprofloxacin Rash Low 06/25/2014 Medications lisinopril (PRINIVIL,ZESTRI L) 10 MG tablet Take 10 mg by mouth daily. 2 Active amLODIPine (NORVASC) 10 MG tablet Take 10 mg by mouth daily. 2 Active naproxen (NAPROSYN) 500 MG tablet Take 500 mg by mouth daily. 2 Active triamterene-hydr oCHLOROthiazide (MAXZIDE-25) 37.5-25 mg per tablet Take 1 tablet by mouth daily. 2 Active triamcinolone acetonide 0.1 % cream Apply 1 application topically daily. 2 Active RESTASIS 0.05 % suspension Place 1 drop into each eye daily. 2 Active cyclobenzaprine (FLEXERIL) 10 MG tablet Take 10 mg by mouth 3 (three) times a day as needed for muscle spasms. Active testosterone cypionate (DEPO-TESTOTERON E) 200 mg/mL injection Inject 0.5 mg into the muscle every 14 (fourteen) days. 0.5cc, every 2 weeks. Active pravastatin (PRAVACHOL) 40 MG tablet Take 40 mg by mouth daily. Active trospium (SANCTURA XR) 60 mg Cp24 Take 1 capsule by mouth every morning. 3 Active SUMAtriptan (IMITREX) 50 MG tabletIndication s:Migraine with aura and with status migrainosus, not intractable Take 1 tablet (50 mg total) by mouth once as needed for migraine. Can repeat dose in 2 hours if needed. Do not exceed 2 doses in a 24 hour period. Max dose 200mg/ day 9 tablet 3 5 Active gabapentin (NEURONTIN) 800 MG tablet Take 800 mg by mouth. Active atorvastatin (LIPITOR) 40 MG tablet Take 40 mg by mouth daily. Active tamsulosin (FLOMAX) 0.4 mg Cap Take 0.4 mg by mouth daily. Active meclizine (ANTIVERT) 25 mg tablet Take 25 mg by mouth 3 (three) times a day as needed. 5 Active diazePAM (VALIUM) 2 MG tablet Take 2 mg by mouth every 6 (six) hours as needed for anxiety. Active ondansetron (ZOFRAN) 4 MG tablet Take 4 mg by mouth every 8 (eight) hours as needed. Active traMADoL (ULTRAM) 50 mg tablet Take 50 mg by mouth every 6 (six) hours as needed for pain (specific location in comments). 4 Active oxyCODONE HCl 10 mg Tab Take 5 mg by mouth every 4 (four) hours as needed. 5 Active famotidine (PEPCID) 40 mg/5 mL (8 mg/mL) suspension Take 20 mg by mouth 2 (two) times a day. Active Active Problems Problem Noted Date Diagnosed Date Lumbar radiculitis 09/13/2022 Cervical facet joint syndrome 09/13/2022 Disorder of sacrum 09/13/2022 Thoracic outlet syndrome 09/13/2022 Encounters Date Type Department Care Team Description 11/18/2024 [place] [facility] [place] [address] [facility], 7th [place] [address] Suellen Rucker RN 10/28/2024 11:37 AM EDT - 10/28/2024 11:59 PM EDT Hospital En[place] [facility] [place] [facility] [address] [facility] [place] [address] Mirna Roblero, TORIE, DNP Discharge Disposition: Home or Self Care 10/28/2024 11:36 AM EDT Hospital Encounter [facility] [place] [address] [place] [address], [address] [place] [address] Hany Rucker MD Discharge Disposition: Home or Self Care 10/28/2024 Transcribe Orders [facility], Radio Flouroscopy [address] [place] [address] Tanna Singleton 08/15/2024 Procedure Pass [facility] - Ultrasound [address] [place] [address] 08/15/2024 Procedure Pass [facility] [place] [address] [place] [address], [address] [place] [phone] from Last 3 Months Immunizations Immunization Administration Dates Next Due INFLUENZA, SPLIT VIRUS, TRIVALENT PF 01/13/2014 Influenza Quadrivalent Preservative Free IM 11/10,05/01/2016,01/01/2015 Tdap 07/21/2015 Family History Medical History Relation Comments Arthritis Mother Breast cancer Mother Diabetes Mother Relation Status Comments Mother Social History Tobacco Use Types Packs/Day Years [...] Sign Reading Time Taken Comments Blood Pressure 130/87 08/15/2024 9:18 AM EDT Pulse 111 08/15/2024 9:18 AM EDT Temperature - - Respiratory Rate - - Oxygen Saturation 96% 08/15/2024 9:18 AM EDT Inhaled Oxygen Concentration - - Weight 90.7 kg (200 lb) 08/15/2024 9:18 AM EDT Height 175.3 cm (5' 9 ) 08/15/2024 9:18 AM EDT Body Mass Index 29.53 08/15/2024 9:18 AM EDT Plan of Treatment Upcoming Encounters Date Type Department Care Team (Late st Contact Info) Description 07/24/2025 11:50 AM EDT Procedure visit [facility] Vestibular Lab [address] [place] [address] Lc Rg MD [address] [place] [phone] [email or web address] 07/24/2025 12:45 PM EDT Office Visit [facility] Otoneurology [address] [address] Lc Rg MD [address] [place] [phone] [email or web address] Health Maintenance Due Date Last Done Comments CREATININE LEVEL 1969 LIPID PANEL 1969 POTASSIUM LEVEL 1969 DEPRESSION SCREENING 1981 HEPATITIS C SCREENING 10/03/1987 HIV ONE-TIME SCREENING (18-65 YEARS) 10/03/1987 SCREENING FOR DIABETES 2004 COLOGUARD 2014 COLONOSCOPY 2014 COLORECTAL CANCER SCREENING 2014 FIT TEST 2014 FOBT 2014 SIGMOIDOSCOPY 2014 VIRTUAL COLONOSCOPY 2014 PNEUMOCOCCAL VACCINES (50+ years) (1 of 1 - PCV) 10/03/2019 ZOSTER VACCINES (1 of 2) 10/03/2019 INFLUENZA VACCINE (#1) 2024 7, 05/01/2016, 01/01/2015, Additional history exists COVID-19 VACCINE ( season) 2024 07/26/2022, 03/03/2021, 08/06/2020, Additional history exists Adult Td,Tdap Booster 07/20/2025 07/21/2015, 013 SMOKING STATUS SCREENING (Once After 26 Yrs) Completed 04/21/2022 HEPATITIS A VACCINES Aged Out No long er eligible based on patient's age to complete this topic HIB VACCINES Aged Out No longer eligi ble based on patient's age to complete this topic MENINGOCOCCAL VACCINES (ACWY) Aged Out No longer eligible based on patient's age to complete this topic MENINGOCOCCAL VACCINES (B) Aged Out N o longer eligible based on patient's age to complete this topic Medical Devices Not on file Procedures Procedure Name Priority Date/Time Associated Diagnosis Comments IR INJECTION Routine 10/28/2024 2:25 PM EDT Spasmodic torticollis CT ANGIO THORACIC OUTLET SYNDROME Routine 10/28/2024 1:00 PM EDT Upper extremity pain, anterior, right from Last 3 Months Results * IR Non-Spine Injection; Botox; Thoracic Outlet; Anterior Scalene, Middle Scalene, Pectoralis Minor;Bilateral; Diagnostic & Therapeutic (10/28/2024 2:25 PM EDT) Anatomical Region Laterality Modality L-spine Ultrasound 10/28/2024 4:34 PM EDT Impressions 10/28/2024 4:45 PM EDT Ultrasound guided Botox injections of the bilateral anterior scalene, middle scalene and pectoralis minor muscles. Narrative 10/28/2024 4:45 PM EDT IR INJECTION ULTRASOUND GUIDED BILATERAL ANTERIOR SCALENE/MIDDLE SCALENE/PECTORALIS MINOR MUSCLE BOTOX INJECTION OPERATORS: Dr. Edgar Feliciano MD CONSENT: The patient was informed of the nature of the proposed procedure. The purposes, alternatives, risks, and benefits were explained and discussed. All questions were answered and written consent was obtained. A time-out was performed prior to initiation of the procedure to reconfirm the patient's name, date of , and site of procedure. MEDICATIONS: 25 units of Botox, right anterior scalene muscle 25 units of Botox, right middle scalene muscle 30 units of Botox, right pectoralis minor muscle 25 units of Botox, left anterior scalene muscle 25 units of Botox, left middle scalene muscle 30 units of Botox, left pectoralis minor muscle PROCEDURE: After skin antisepsis, placement of sterile drapes, and local lidocaine anesthesia, a 25-gauge 1.5-inch needle was advanced into the right middle scalene under ultrasound guidance. Once needle placement was considered satisfactory, medication was injected and the needle subsequently removed. Then, a new 25-gauge 1.5-inch needle was advanced into the right anterior scalene under ultrasound guidance. Once needle placement was considered satisfactory, medication was injected and the needle subsequently removed. Then, a 22-gauge 3.5-inch needle was advanced into the right pectoralis minor muscle under ultrasound guidance. Once needle placement was considered satisfactory, medication was injected and the needle subsequently removed. Attention was then turned to the left side. After skin antisepsis, placement of sterile drapes, and local lidocaine anesthesia, a new 25-gauge 1.5-inch needle was advanced into the left middle scalene under ultrasound guidance. Once needle placement was considered satisfactory, medication was injected and the needle subsequently removed. Then, a new 25-gauge 1.5-inch needle was advanced into the left anterior scalene under ultrasound guidance. Once needle placement was considered satisfactory, medication was injected and the needle subsequently removed. Then, a new 22-gauge 3.5-inch needle was advanced into the left pectoralis minor muscle under ultrasound guidance. Once needle placement was considered satisfactory, medication was injected and the needle subsequently removed. COMPLICATIONS: No immediate complications. Procedure Note Edgar Feliciano MD, LOGAN - 10/28/2024 IR INJECTION ULTRASOUND GUIDED BILATERAL ANTERIOR SCALENE/MIDDLE SCALENE/PECTORALISMINOR MUSCLE BOTOX INJECTION OPERATORS: Dr. Edgar Feliciano MD CONSENT: The patient was informed of the nature of the proposed procedure. Thepurposes, alternatives, risks, and benefits were explained and discussed.All questions were answered and written consent was obtained. A time-out was performed prior to initiation of the procedure to reconfirmthe patient's name, date of , and site of procedure. MEDICATIONS: 25 units of Botox, right anterior scalene muscle 25 units of Botox, right middle scalene muscle 30 units of Botox, right pectoralis minor muscle 25 units of Botox, left anterior scalene muscle 25 units of Botox, left middle scalene muscle 30 units of Botox, left pectoralis minor muscle PROCEDURE: After skin antisepsis, placement of sterile drapes, and local lidocaineanesthesia, a 25-gauge 1.5-inch needle was advanced into the right middlescalene under ultrasound guidance. Once needle placement was consideredsatisfactory, medication was injected and the needle subsequently removed. Then, a new 25-gauge 1.5-inch needle was advanced into the right anteriorscalene under ultrasound guidance. Once needle placement was consideredsatisfactory, medication was injected and the needle subsequently removed. Then, a 22-gauge 3.5-inch needle was advanced into the right pectoralisminor muscle under ultrasound guidance. Once needle placement wasconsidered satisfactory, medication was injected and the needlesubsequently removed. Attention was then turned to the left side. After skin antisepsis,placement of sterile drapes, and local lidocaine anesthesia, a [id number] 1.5-inch needle was advanced into the left middle scalene underultrasound guidance. Once needle placement was considered satisfactory,medication was injected and the needle subsequently removed. Then, a new 25-gauge 1.5-inch needle was advanced into the left anteriorscalene under ultrasound guidance. Once needle placement was consideredsatisfactory, medication was injected and the needle subsequently removed. Then, a new 22-gauge 3.5-inch needle was advanced into the left pectoralisminor muscle under ultrasound guidance. Once needle placement wasconsidered satisfactory, medication was injected and the needlesubsequently removed. COMPLICATIONS: No immediate complications. IMPRESSION: Ultrasound guided Botox injections of the bilateral anterior scalene,middle scalene and pectoralis minor muscles. us Mirna Roblero FORECLOSURE HOME INSPECTOR, DNP IMG IR MSK Fi nal Result * CT Angio Thoracic Outlet Syndrome (10/28/2024 1:00 PM EDT) Anatomical Region Laterality Modality Chest, Thoracic Vasculature Comp uted Tomography 10/29/2024 8:13 AM EDT Impressions 10/29/2024 8:17 AM EDT No narrowing of the bilateral subclavian artery in the scalene triangle in the neutral position. No evidence of any intrinsic or extrinsic compression on the costoclavicular space or the subpectoralis minor space to suggest mass effect on the neurovascular structures traversing these spaces. Narrative 10/29/2024 8:[address] ANGIO THORACIC OUTLET SYNDROME TECHNIQUE: CTA SCAN OF THE THORACIC OUTLET CONTRAST ENHANCED CTA scan of the Neck and Chest with intravenous contrast. A multiphasic IV contrast injection protocol was used to opacify for arteries and veins of the thoracic outlet and neck. 3D images with reformatting and post-processing reconstructions were performed and interpreted. INDICATION: Thoracic outlet syndrome COMPARISON: None FINDINGS: NECK CTA: The common carotid arteries, vertebral arteries, internal carotid arteries and external carotid arteries are free of any significant stenosis or aneurysm bilaterally. All other vascular structures are also normal. There is no cervical lymphadenopathy. Alignment of cervical spine is within normal limits. No significant spinal canal or neural foraminal stenosis by CT. The C7 transverse processes are unremarkable in appearance. The major salivary glands and the thyroid gland are normal. The visualized portions of the brain parenchyma and paranasal sinuses are normal. CHEST CTA: There is a three vessel, left sided aortic arch. The great arteries are free of any significant stenosis or aneurysm. The visualized central airways are patent. The lung parenchyma within the visualized upper lung zones is normal without any evidence of consolidation suggest pneumonia. There is no evidence of lymphadenopathy, pulmonary nodules or mass lesion. Visualized thoracic spine is unremarkable in appearance RIGHT THORACIC OUTLET: The subclavian vein is normal. There is no narrowing of the subclavian artery in the scalene triangle in the neutral position. The costoclavicular space and the subpectoralis minor space are free of any intrinsic or extrinsic compression to suggest mass effect on the neurovascular structures traversing these spaces. LEFT THORACIC OUTLET: The subclavian vein is normal. There is no narrowing of the subclavian artery in the scalene triangle in the neutral position. The costoclavicular space and the subpectoralis minor space are free of any intrinsic or extrinsic compression to suggest mass effect on the neurovascular structures traversing these spaces. Procedure Note Sherif Dumont MD - 10/29/2024 CT ANGIO THORACIC OUTLET SYNDROME TECHNIQUE: CTA SCAN OF THE THORACIC OUTLET CONTRAST ENHANCED CTA scan of the Neck and Chest with intravenous contrast. A multiphasicIV contrast injection protocol was used to opacify for arteries and veinsof the thoracic outlet and neck. 3D images with reformatting andpost-processing reconstructions were performed and interpreted. INDICATION: Thoracic outlet syndrome COMPARISON: None FINDINGS: NECK CTA: The common carotid arteries, vertebral arteries, internal carotid arteriesand external carotid arteries are free of any significant stenosis oraneurysm bilaterally. All other vascular structures are also normal. There is no cervical lymphadenopathy. Alignment of cervical spine is within normal limits. No significant spinalcanal or neural foraminal stenosis by CT. The C7 transverse processes areunremarkable in appearance. The major salivary glands and the thyroid gland are normal. The visualized portions of the brain parenchyma and paranasal sinuses arenormal. CHEST CTA: There is a three vessel, left sided aortic arch. The great arteries arefree of any significant stenosis or aneurysm. The visualized central airways are patent. The lung parenchyma within the visualized upper lung zones is normalwithout any evidence of consolidation suggest pneumonia. There is noevidence of lymphadenopathy, pulmonary nodules or mass lesion. Visualized thoracic spine is unremarkable in appearance RIGHT THORACIC OUTLET: The subclavian vein is normal. There is no narrowing of the subclavian artery in the scalene triangle inthe neutral position. The costoclavicular space and the subpectoralisminor space are free of any intrinsic or extrinsic compression to suggestmass effect on the neurovascular structures traversing these spaces. LEFT THORACIC OUTLET: The subclavian vein is normal. There is no narrowing of the subclavian artery in the scalene triangle inthe neutral position. The costoclavicular space and the subpectoralisminor space are free of any intrinsic or extrinsic compression to suggestmass effect on the neurovascular structures traversing these spaces. IMPRESSION: No narrowing of the bilateral subclavian artery in the scalene triangle inthe neutral position. No evidence of any intrinsic or extrinsic compression on thecostoclavicular space or the subpectoralis minor space to suggest masseffect on the neurovascular structures traversing these spaces. us Hanyradha Rucker MD [facility] CT CHEST Final Result from Last 3 Months Insurance [employer] [place] [address] [place] [address] [place] [address] [place] [address] [address] [employer] Care Teams Roller Gold Leaf Relationship Specialty Start Date End Date hCrist Berman MD [address] [place] [address] [phone] [email or web address] PCP - General Family Medicine 09/04/23 Hany Rucker MD [address] [place] [phone] [email or web address] Thoracic Surgery 08/15/24 Additional Source Comments The information contained in this document represents components of the legal health record. It is not the complete legal health record.[facility]
--- OUTSIDE RECORDS SUMMARY | 2024-11-28 14:11 | XMS_ITS | Encounter Summary ---
Author Organization [facility] Address [address] [place] [address] Phone Care Team Providers Care Family Preservation Caseworker Name Role Phone Sergio Camacho MD Primary Care Provider [phone] Christ Berman MD Primary Care Provider [phone] Hany Rucker MD Unavailable [phone] Encounter Details Date Type Department Care Team (Late st Contact Info) Description 09/13/2022 Procedure Pass [facility], [address] [address] Social History Tobacco Use Types Packs/Day Years Used Date Smoking Tobacco: Never Smokeless Tobacco: Never Education Answer Date Recorded Are you interested [...] AM EDT Procedure visit [facility] [address] [facility] [address] [address] Lc Rg MD [address] [place] [address] [email or web address] 07/24/2025 12:45 PM EDT Office Visit [facility] Otoneurology [facility] [address] [address] Lc Rg MD [address] [place] [phone] [email or web address] documented as of this encounter Visit Diagnoses Not on filedocumented in this encounter Care Teams Family Preservation Caseworker Relationship Specialty Start Date End Date Sergio Camacho MD [email or web address] PCP - General Family Medicine 01/10/22 09/03/23 Christ Berman MD [address] [place] [phone] [email or web address] PCP - General Family Medicine 09/04/23 Hany Rucker MD [address] [place] [phone] [email or web address] Thoracic Surgery 08/15/24 documented as of this encounter Additional Source Comments The information contained in this document represents components of the legal health record. It is not the complete legal health record.[facility]
--- OUTSIDE RECORDS SUMMARY | 2024-11-28 14:11 | XMS_ITS | Encounter Summary ---
Author Organization [facility] Address [address] [place] [address] Phone Care Team Providers Care Daycare Assistant Name Role Phone Sergio Camacho MD Primary Care Provider [phone] Christ Berman MD Primary Care Provider [phone] Hany Rucker MD Unavailable [phone] Encounter Details Date Type Department Care Team (Late st Contact Info) Description 04/21/2022 Procedure Pass [address] [address] Social History Tobacco Use Types Packs/Day Years [...] Description 07/24/2025 11:50 AM EDT Procedure visit [facility] Vestibular Lab [address] [place] [address] Lc Rg MD [address] [place] [phone] [email or web address] 07/24/2025 12:45 PM EDT Office Visit [facility] Otoneurology [address] [place] [address] Lc Rg MD [address] [place] [phone] [email or web address] documented as of this encounter Visit Diagnoses Not on filedocumented in this encounter Care Teams Daycare Assistant Relationship Specialty Start Date End Date Sergio Camacho MD [email or web address] PCP - General Family Medicine 01/10/22 09/03/23 Christ Berman MD [address] [place] [address] [email or web address] PCP - General Family Medicine 09/04/23 Hany Rucker MD [address] [place] [phone] [email or web address] Thoracic Surgery 08/15/24 documented as of this encounter Additional Source Comments The information contained in this document represents components of the legal health record. It is not the complete legal health record.[facility]
--- OUTSIDE RECORDS SUMMARY | 2024-11-28 14:11 | XMS_ITS | Encounter Summary ---
Author Organization [facility] Address [address] [place] [address] Phone Care Team Providers Care Reference Assistant Name Role Phone Christ Berman MD Primary Care Provider [phone] Hany Rucker MD Unavailable [phone] Encounter Details Date Type Department Care Team ([facility] Contact Info) Description 10/28/2024 Transcribe Orders [facility] Outpatient Care, Radio Flouroscopy [address] [place] [address] Tanna Singleton [address] [place] [address] [email or web address] Social History Tobacco Use Types Packs/Day Years [...] Description 07/24/2025 11:50 AM EDT Procedure visit [facility] Vestibular Lab [facility] [address] [facility] [address] [place] [address] Lc Rg MD [address] [place] [phone] [email or web address] 07/24/2025 12:45 PM EDT Office Visit [facility] Otoneurology [address] [place] [address] Lc Rg MD [address] [place] [phone] [email or web address] documented as of this encounter Visit Diagnoses Not on filedocumented in this encounter Care Teams Reference Assistant Relationship Specialty Start Date End Date Christ Berman MD [address] [place] [address] [email or web address] PCP - General Family Medicine 09/04/23 Hany Rucker MD [address] [place] [phone] [email or web address] Thoracic Surgery 08/15/24 documented as of this encounter Additional Source Comments The information contained in this document represents components of the legal health record. It is not the complete legal health record.[facility]
--- OUTSIDE RECORDS SUMMARY | 2024-11-28 14:11 | XMS_ITS | Encounter Summary ---
Author Organization [facility] Address [address] [place] [address] Phone Care Team Providers Care Voice Teacher Name Role Phone Christ Berman MD Primary Care Provider [phone] Hany Rucker MD Unavailable [phone] Encounter Details Date Type Department Care Team (Late Contact Info) Description 08/15/2024 Procedure Pass [facility] Outpatient Care - Ultrasound [address] [place] [address] Social History Tobacco Use Types Packs/Day Years [...] Encounters Date Type Department Care Team (Late Contact Info) Description 07/24/2025 11:50 AM EDT Procedure visit [facility] Main Portal [address] [facility] [address], [place] [address] Lc Rg MD [address] [place] [address] [email or web address] 07/24/2025 12:45 PM EDT Office Visit [facility] Otoneurology [facility] [address] [facility] [address]nd [place] [address] Lc Rg MD [address] [place] [address] [email or web address] documented as of this encounter Visit Diagnoses Not on filedocumented in this encounter Care Teams Voice Teacher Relationship Specialty Start Date End Date Christ Berman MD [address] [place] [address] [email or web address] PCP - General Family Medicine 09/04/23 Hany Rucker MD [address] [place] [address] [email or web address] Thoracic Surgery 08/15/24 documented as of this encounter Additional Source Comments The information contained in this document represents components of the legal health record. It is not the complete legal health record.[facility]
--- OUTSIDE RECORDS SUMMARY | 2024-11-28 14:11 | XMS_ITS | Clinical Summary ---
Author Organization [facility] Address [address] [place] [address] Care Team Providers Care Composite Boat Builder Name Role Phone Maximiliano Ocampo MD Primary Care Provider Allergies Active Allergy Reactions Criticality Noted Date Comments Cefaclor 09/20/2009 [employer] Comment: Category: Adverse Reaction; Ciprofloxacin 09/20/2009 [employer] Comment: Category: Adverse Reaction; Medications Testosterone Cypionate (DEPO-TESTOTERO NE) 200 MG/ML injection inject 100mg/ml b1mzhoj 1 5 09/20/2009 Active Simvastatin (ZOCOR) 40 [...] COVID-19 Vaccine (1 - 2023-2 5 season) 2024 Influenza (#1) 2024 12/06/2012, 02/10/2012 HPV Vaccine (No Doses Required) Completed Hep A Aged Out No longer eligi ble based on patient's age to complete this topic Hib Aged Out No longer eligi ble based on patient's age to complete this topic Meningococcal ACWY Aged Out No longer eligible based on patient's age to complete this topic Care Teams Composite Boat Builder Relationship Specialty Start Date End Date Maximiliano Ocampo MD [facility] [address] [place] [address] PCP - General 10/16/22
--- NOTE | 2024-11-28 15:30 | A.SPINEOV_ITS ---
Intake Visit Reasons: 6wk f/u Intake Note: Mr. De Souza is here for his 6 week f/u. Human Resources Communications Manager Required: Yes Human Resources Communications Manager Name: ASL (tablet) Allergies cefaclor (From Ceclor) Allergy (Severe, Verified 09/04/24 06:33) Hives,swelling ciprofloxacin (From Cipro) Allergy (Severe, Verified 09/04/24 06:33) Hives, swelling shellfish derived (shellfish) Allergy (Verified 09/04/24 06:33) Hives Assessment & Plan Assessment & Plan (1) Lumbar radiculitis: Code(s): M54.16 - Radiculopathy, lumbar region Category: Medical Plan: Dear colleague, On 11/28/2024, I saw for follow-up Lux De Souza. He is status post lumbar decompression for right lumbar radiculopathy in August 2024. The surgery did not relieve his symptoms despite the postoperative MRI showing a good decompression of the nerve root. 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 I would like to repeat the MRI 1 more time to confirm the diagnosis and then he would like to be referred to pain management at [facility] to discuss a spinal cord stimulator. I wrote him a final script for oxycodone 5 mg, 30 tablets. His will call me for the results of the MRI. Hamzah Venegas MD, PhD Spine Fellowship Trained Neurosurgeon Director, [facility] Orders: Orders MR lumbar spine wo con Today M54.16 - Radiculopathy, lumbar region Medications: New oxycodone Partial Fill upon patient request. 5 mg PO BID 30 tabs 0RF pain Coding Level of Care Code Global (02849) Diagnoses Lumbar radiculitis M54.16
== END 2024-11-28 15:57 | disposition home or self-care (01) ==
LOC: HO.HNS 14:07
PROVIDERS: PCP Nurse Practitioner Adult Health; Visit Provider Neurological Surgery
DX: M54.16 Radiculopathy, lumbar region (principal)
CPT/HCPCS: 99024

== ENCOUNTER 2024-12-23 18:00 | Outpatient (REF) | payer OTHER, SELFPAY ==
--- NOTE | ~2024-12-23 | MR_ITS ---
EXAMINATION: MR LUMBAR SPINE WITHOUT CONTRAST CLINICAL INFORMATION: M 54.16. Radiculopathy, lumbar region. COMPARISON: October 08, 2024. TECHNIQUE: MRI of the lumbar spine was obtained using routine sequences without contrast. FINDINGS: Limited due to lack of IV contrast administration. Last rib-bearing vertebra labeled T12. There is hyperintense STIR signal abnormality extending from the skin surface to the right L4-5 facet joint along the surgical site. There is bone marrow STIR signal within the right L4-5 facet joint. There is no fluid collection within the central spinal canal/epidural/extradural compartment. There is prominent epidural fat at L4-5 and L5-S1 levels reducing the AP diameter of the thecal sac. 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 T12-L1: No disc herniation. No neuroforamina stenosis. L1-2: No disc herniation. No neuroforamina stenosis. L2-3: No disc herniation. No neuroforamina stenosis. L3-4: Broad-based disc bulging. Facet joint hypertrophy. Reduced AP diameter of the thecal sac and neuroforamina. L4-5: Prominent epidural fat. Postsurgical changes in the right side posterior elements. No neuroforamina stenosis. L5-S1: Prominent epidural fat reducing the AP diameter of the thecal sac. Bilateral neuroforamina narrowing secondary to facet joint hypertrophy. Modic type II endplate changes at L5-S1. MR/MR lumbar spine wo con IMPRESSION: Limited exam due to lack of IV contrast with the residual posttreatment changes extending from the skin surface to the right L4-5 facet joint. Epidural lipomatosis, L4-5 and L5-S1. Electronically signed by: Celso Valadez MD 12/24/2024 07:11 AM EDT
--- OUTSIDE RECORDS SUMMARY | 2024-12-23 18:52 | XMS_ITS | Encounter Summary ---
Author Organization [facility] Address [address] [place] [address] Phone Care Team Providers Care Drafting Technician Name Role Phone Sergio Camacho MD Primary Care Provider Christ Berman MD Primary Care Provider [phone] Hany Rucker MD Unavailable [phone] Encounter Details Date Type Department Care Team (Late st Contact Info) Description 09/13/2022 Procedure Pass [facility], [address] [address] Social History Tobacco Use Types Packs/Day Years [...] AM EDT Procedure visit [facility] 243 [facility] 9[place] [address] Lc Rg MD [address] [place] [address] [email or web address] 07/24/2025 12:45 PM EDT Office Visit [facility] [address] [address] Lc Rg MD [address] [place] [address] [email or web address] documented as of this encounter Visit Diagnoses Not on filedocumented in this encounter Care Teams Drafting Technician Relationship Specialty Start Date End Date Sergio Camacho MD [email or web address] PCP - General Family Medicine 01/10/22 09/03/23 Christ Berman MD [address] [place] [address] [email or web address] PCP - General Family Medicine 09/04/23 Hany Rucker MD [address] [place] [address] [email or web address] ed Thoracic Surgery 08/15/24 documented as of this encounter Additional Source Comments The information contained in this document represents components of the legal health record. It is not the complete legal health record.[facility]
--- OUTSIDE RECORDS SUMMARY | 2024-12-23 18:52 | XMS_ITS | Data Portability ---
Author Organization [place] [facility] Address [address] [address] Care Team Providers Care Housekeeping Assistant Name Role Phone CALINNATE Primary Care Provider MICKI CR Referring Provider Assessment Encounter Date Assessment Date Assessment LastModified by Organization Details LastModified Time 07/25/2024 07/25/2024 Patient with episodic positionally induced vertigo. [place] was positive for vertigo and rotary nystagmus with the head to the left. We discussed that the patient s pattern of symptoms and physical exam findings are most consistent with benign paroxysmal positional vertigo (BPPV). The pathophysiology of BPPV was discussed in detail. Patient was provided with a referral to AT for Dima maneuvers and vestibular therapy.We discussed [...] vestibula r therapy referral 2024 025 [email or web address] [facility], [address], [address] Floor, [place], [address], 16:44:45 Procedures None recorded. Surgeries None recorded. [...] Details Recorded Time Benign paroxysmal positional vertigo 501607657 Active 2024 CESAR BUSTILLOS MD [address] [place] [address], [place], [address], [facility] 5 14:12:52 Acute transudative otitis media 62777809 Active 2024 CESAR BUSTILLOS MD [address] [place] [address], [place], [address], [facility] 5 14:13:28 Problem Notes None recorded. Medical Equipment None Reported. Allergies Allergen ID Allergen Name Allergen Category Reaction Reaction Severity Criticality Documentation Date Start Date Code Code System Note Provider Name and Address Organization Details Recorded Time 456530 Cipro medicatio n hives Not available Not available 07/25/202402102 3 RxNorm MICHELLE COMI ANIBAL byrd - [facility] 13:52:50 752509 Ceclor medicatio n hives Not available Not available 07/25/202418260 5 RxNofrederic byrd [place] - [facility] 5 13:53:48 Medications Name Sig Start Date Stop [...] Updated DateTime 07/25/2024 175.26 cm 31.7 kg/m2 54934.36 g MICHELLE [facility] - [facility] 07/25/2024 13:51:02 Social History None recorded. Functional Status Question Answer Note LastModified by Organization D etails LastModified Time What is your level of alcohol consumption? None [email or web address] Information not available 07/25/2024 Mental Status None recorded. Family History Nothing Reported. Medical History Condition Response Arthritis Y Migraines Y Hypertension Y Past Encounters Encounter ID Performer Location Encounter Start Date Encounter Closed Date Diagnosis/Indication Diagnosis SNOMED-CT Code Diagnosis ICD10 Code Diagnosis IMO Codes Diagnosis Note [id number] CESAR BUSTILLOS MD [facility] [address] [address] 07/25/2024 13:08:22 07/25/2024 14:23:27 Benign paroxysmal positional vertigo 236054461 H81.12 17856989 Acute adams sudative otitis media 47948020 H65.192 73779860 Health Concerns Section Related Observation LastModified by Organization Detai ls LastModified Time None Recorded Concern Status LastModified by Organization Details LastModified Time None Recorded Advance Directives Directive None Recorded Payers Insurance Date Sequence Insurance Name Policy Number Policy Rapp Covered Member ID Rapp Member ID Guarantor Name 07/25/2024 1 [facility] Lux De Souza [id number] Lux De Souza Notes Date Note Type Note Provider Name and Address Organization Details Recorded Time 07/25/2024 text/html ROS as noted in the HPI IPad ASLdizzyescorted by who is helping translateroom spinning when rolls overdouble vision - seen at production control specialist who ordered prism stickers for glassesin wheelchair feels dizzy constantlyimproves if lays still with eyes closedonset 06/15/24, then in [facility] 06/21/24 admitted for 5 days for ear infectionleft otalgia with no otorrheareferred to vestibular rehab - has not been seen yet 06/26/2024 [facility] MRI IAC with and without contrastNo mass or abnormal enhancement in the IAC or CPA. Complete opacification of left mastoid air cells and middle ear. Partial opacification right mastoid air cells. Similar to previous CT scan from 06/22/2024 06/22/20[address] [facility] head noncontrast Opacification of inferior left mastoid air cells and middle ear. Opacification partial right mastoid air cells. 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
--- OUTSIDE RECORDS SUMMARY | 2024-12-23 18:52 | XMS_ITS | Encounter Summary ---
Author Organization [facility] Address [address] [place] [address] Phone Care Team Providers Care Finisher [employer] Name Role Phone Christ Berman MD Primary Care Provider [phone] Hany Rucker MD Unavailable [phone] Encounter Details Date Type Department Care Team (Late st Contact Info) Description 08/15/2024 Procedure Pass [facility] - [facility] [address] [facility], 6th [place] [address] Social History Tobacco Use Types Packs/Day Years [...] AM EDT Procedure visit [facility] [address] [place] [address] Lc Rg MD [address] [place] [address] [email or web address] 07/24/2025 12:45 PM EDT Office Visit [facility] [place] Otoneurology [address] [place] [address] Lc Rg MD [address] [place] [address] [email or web address] documented as of this encounter Visit Diagnoses Not on filedocumented in this encounter Care Teams Finisher [employer] Relationship Specialty Start Date End Date Christ Berman MD [address] [place] [address] [email or web address] PCP - General Family Medicine 09/04/23 Hany Rucker MD [address] [place] [address] [email or web address] Thoracic Surgery 08/15/24 documented as of this encounter Additional Source Comments The information contained in this document represents components of the legal health record. It is not the complete legal health record.[facility]
--- OUTSIDE RECORDS SUMMARY | 2024-12-23 18:52 | XMS_ITS | Encounter Summary ---
Author Organization [facility] Address [address] [place] [address] Phone Care Team Providers Care Header Dock Name Role Phone Terrence Sunshine Primary Care Provider Sergio Camacho MD Primary Care Provider [phone] Christ Berman MD Primary Care Provider [phone] Hany Rucker MD Unavailable [phone] Encounter Details Date Type Department Care Team (Late st Contact Info) Description 12/26/2021 Procedure Pass [address] [address] Social History Tobacco Use Types Packs/Day Years [...] Description 07/24/2025 11:50 AM EDT Procedure visit [facility]est[facility] Lab [address] [place] [address] Lc Rg MD [address] [place] [address] [email or web address] 07/24/2025 12:45 PM EDT Office Visit [facility] [address] [address] Lc Rg MD [address] [place] [address] [email or web address] documented as of this encounter Visit Diagnoses Not on filedocumented in this encounter Care Teams Header Dock Relationship Specialty Start Date End Date Terrence Sunshine PA [email or web address] PCP - General Unknown Provider Specialty 07/07/21 01/09/22 Sergio Camacho MD [email or web address] PCP - General Family Medicine 01/10/22 09/03/23 Christ Berman MD [address] [place] [address] [email or web address] PCP - General Family Medicine 09/04/23 Hany Rucker MD [address] [place] [address] [email or web address] Thoracic Surgery 08/15/24 documented as of this encounter Additional Source Comments The information contained in this document represents components of the legal health record. It is not the complete legal health record.[facility]
--- OUTSIDE RECORDS SUMMARY | 2024-12-23 18:52 | XMS_ITS | Encounter Summary ---
Author Organization [facility] Address [address] [place] [address] Phone Care Team Providers Care Cardiac Cath Lab Technologist Name Role Phone Sergio Camacho MD Primary Care Provider [phone] Christ Berman MD Primary Care Provider [phone] Hany Rucker MD Unavailable [phone] Encounter Details Date Type Department Care Team (Late st Contact Info) Description 04/21/2022 Procedure Pass [address] [address] Social History Tobacco Use Types Packs/Day Years [...] Description 07/24/2025 11:50 AM EDT Procedure visit [facility] Vestibular Lab [address] [place] [address] Lc Rg MD [address] [place] [address] [email or web address] 07/24/2025 12:45 PM EDT Office Visit [facility] Otoneurology [address] [place] [address] Lc Rg MD [address] [place] [address] [email or web address] documented as of this encounter Visit Diagnoses Not on filedocumented in this encounter Care Teams Cardiac Cath Lab Technologist Relationship Specialty Start Date End Date Sergio Camacho MD [email or web address] PCP - General Family Medicine 01/10/22 09/03/23 Christ Berman MD [address] [place] [address] [email or web address] PCP - General Family Medicine 09/04/23 Hany Rucker MD [address] [place] [address] [email or web address] Thoracic Surgery 08/15/24 documented as of this encounter Additional Source Comments The information contained in this document represents components of the legal health record. It is not the complete legal health record.[facility]
--- OUTSIDE RECORDS SUMMARY | 2024-12-23 18:52 | XMS_ITS | Encounter Summary ---
Author Organization [facility] Address [address] [place] [address] Phone Care Team Providers Care Sap Administrator Name Role Phone Christ Berman MD Primary Care Provider [phone] Hany Rucker MD Unavailable [phone] Encounter Details Date Type Department Care Team (Late Contact Info) Description 08/15/2024 Procedure Pass [facility] Outpatient Care - Ultrasound [address] [place] [address] Social History Tobacco Use Types Packs/Day Years [...] EDT Procedure visit [facility] [place] [address] [facility] 9[place] [address] Lc Rg MD [address] [place] [address] [email or web address] 07/24/2025 12:45 PM EDT Office Visit [facility] [address] [facility] 2nd [place] [address] Lc Rg MD [address] [place] [address] [email or web address] documented as of this encounter Visit Diagnoses Not on filedocumented in this encounter Care Teams Sap Administrator Relationship Specialty Start Date End Date Christ Berman MD [address] [place] [address] [email or web address] PCP - General Family Medicine 09/04/23 Hany Rucker MD [address] [place] [address] [email or web address] Thoracic Surgery 08/15/24 documented as of this encounter Additional Source Comments The information contained in this document represents components of the legal health record. It is not the complete legal health record.[facility]
--- OUTSIDE RECORDS SUMMARY | 2024-12-23 18:52 | XMS_ITS | Encounter Summary ---
Author Organization [facility] Address [address] [place] [address] Phone Care Team Providers Care Financial Service Professional Name Role Phone Christ Berman MD Primary Care Provider [phone] Hany Rucker MD Unavailable [phone] Encounter Details Date Type Department Care Team ([facility] Contact Info) Description 10/28/2024 Transcribe Orders [facility] Out[facility] Care, Radio Flouroscopy [address] [place] [address] Tanna Singleton [address] [place] [address] [email or web address] Social History Tobacco Use Types Packs/Day Years [...] 07/24/2025 11:50 AM EDT Procedure visit [facility] [address] [facility] 9th [place] [address] Lc Rg MD [address] [place] [address] [email or web address] 07/24/2025 12:45 PM EDT Office Visit [facility] Otoneurology [address] [place] [address] Lc Rg MD [address] [place] [address] [email or web address] documented as of this encounter Visit Diagnoses Not on filedocumented in this encounter Care Teams Financial Service Professional Relationship Specialty Start Date End Date Christ Berman MD [address] [place] [address] [email or web address] PCP - General Family Medicine 09/04/23 Hany Rucker MD [address] [place] [address] [email or web address] Thoracic Surgery 08/15/24 documented as of this encounter Additional Source Comments The information contained in this document represents components of the legal health record. It is not the complete legal health record.[facility]
--- OUTSIDE RECORDS SUMMARY | 2024-12-23 18:52 | XMS_ITS | Clinical Summary ---
Author Organization [facility] Address [address] [place] [address] Care Team Providers Care Director Of Preclinical Research Name Role Phone Maximiliano Ocampo MD Primary Care Provider Allergies Active Allergy Reactions Criticality Noted Date Comments Cefaclor 09/20/2009 [employer] Comment: Category: Adverse Reaction; Ciprofloxacin 09/20/2009 [employer] Comment: Category: Adverse Reaction; Medications Testosterone Cypionate (DEPO-TESTOTERO NE) 200 MG/ML injection inject 100mg/ml c1dpagn 1 5 09/20/2009 Active Simvastatin (ZOCOR) 40 [...] Tdap) 11/04/2022 11/04/2012 COVID-19 Vaccine (1 - 2024-2 6 season) 2024 Influenza (#1) 2024 12/06/2012, 02/10/2012 HPV Vaccine (No Doses Required) Completed Hep A Aged Out No longer eligi ble based on patient's age to complete this topic Hib Aged Out No longer eligi ble based on patient's age to complete this topic Meningococcal ACWY Aged Out No longer eligible based on patient's age to complete this topic Care Teams Director Of Preclinical Research Relationship Specialty Start Date End Date Maximiliano Ocampo MD [facility] [address] [place] [address] PCP - General 10/16/22
--- OUTSIDE RECORDS SUMMARY | 2024-12-23 18:52 | XMS_ITS | Clinical Summary ---
Author Organization [facility] Address [address] [place] [phone] Phone Care Team Providers Care Dust Brush Assembler Name Role Phone Christ Berman MD Primary Care Provider [phone] Hany Rucker MD Unavailable [phone] Allergies Active Allergy Reactions Criticality Noted [...] Encounters Date Type Department Care Team Description 12/08/2024 Telephone [facility] Thoracic Surgery [address] [place] [address], [address] [place] [address] Andressa Mendieta RN 11/18/2024 Telephone [facility] Thoracic Surgery [address] [place] [address], [address] [place] [address] Suellen Rucker RN 10/28/2024 11:37 AM EDT - 10/28/2024 11:59 PM EDT Hospital Encounter [facility] - Ultrasound [address] [place] [address] Mirna Roblero, TORIE, DNP Discharge Disposition: Home or Self Care 10/28/2024 11:36 AM EDT Hospital Encounter [facility] - CT [address] [place] [id number] Hany Rucker MD Discharge Disposition: Home or Self Care 10/28/2024 Transcribe Orders [facility], Radio Flouroscopy [address] [place] [id number] Tanna Singleton 08/15/2024 Procedure Pass [facility] - Ultrasound [address] [place] [id number] 08/15/2024 Procedure Pass [facility] - CT [address] [place] [phone] from Last 3 Months Immunizations Immunization Administration [...] Description 07/24/2025 11:50 AM EDT Procedure visit [facility] Vestibular Lab [address] [place] [address] Lc Rg MD [address] [place] [phone] [email or web address] 07/24/2025 12:45 PM EDT Office Visit [facility] Otoneurology [address] [place] [address] Lc Rg MD [address] [place] [phone] [email or web address] Health Maintenance Due Date Last Done Comments [...] of 2) 10/03/2019 INFLUENZA VACCINE (#1) 2024 , 05/01/2016, 01/01/2015, Additional history exists COVID-19 VACCINE ( season) 2024 07/26/2022, 03/03/2021, 08/06/2020, Additional history exists Adult Td,Tdap Booster 07/20/2025 07/21/2015, 013 RSV VACCINE (1 - 1-dose 75+ series) 2044 SMOKING STATUS SCREENING (Once After 26 Yrs) [...] sterile drapes, and local lidocaine anesthesia, a [id number] 1.5-inch needle was advanced into the left [...] and pectoralis minor muscles. us Mirna Roblero COMPUTER FORENSICS EXAMINER, DNP IMG IR MSK Fi nal Result [...] traversing these spaces. us Hanyradha Rucker MD [facility] CHEST Final Result from Last 3 Months Insurance [facility] POS Care Teams Dust Brush Assembler Relationship Specialty Start Date End Date Christ Berman MD [address] [place] [id number] [email or web address] PCP - General Family Medicine 09/04/23 Hany Rucker MD [address] [place] [phone] [email or web address] Thoracic Surgery 08/15/24 Additional Source Comments The information contained in this document represents components of the legal health record. It is not the complete legal health record.[facility]
== END 2024-12-23 18:01 | disposition home or self-care (01) ==
LOC: HO.MRI 18:00
PROVIDERS: Visit Provider Neurological Surgery
DX: M54.16 Radiculopathy, lumbar region (principal)
CPT/HCPCS: 72148

== ENCOUNTER → 2024-12-23 18:11 | Outpatient (BNV) | payer OTHER, SELFPAY | PROVIDERS: Visit Provider Radiology Diagnostic Radiology | DX: M54.16 Radiculopathy, lumbar region (principal) | CPT/HCPCS: 72148 ==